=== PATIENT | female | born 1950 | race Caucasian/White ===

== ENCOUNTER 2018-09-07 11:13 | Outpatient (CLI) | payer OTHER ==
[2018-09-07] MEDS ORDERED: NALOXONE HCL 0.4 MG/ML INJ IVP PRN (11:40)
[2018-09-07] MEDS ORDERED: MIDAZOLAM 2 MG/2 ML VIAL IVP PRN (11:40)
[2018-09-07] MEDS ORDERED: fentaNYL 100 MCG/2 ML INJ IVP PRN (11:40)
[2018-09-07] MEDS ORDERED: FLUMAZENIL 0.5 MG/5 ML MDV IVP PRN (11:40)
[2018-09-07] MEDS ORDERED: NS 1,000 ML IV SCH (11:45)
[2018-09-07] MEDS ORDERED: GADOBUTROL 10 ML VIAL IVP ONE (12:40)
[2018-09-07] MEDS ORDERED: FLUMAZENIL 0.5 MG/5 ML MDV IVP ONE (12:43)
[2018-09-07] MEDS ORDERED: NALOXONE HCL 0.4 MG/ML INJ ONE (12:43)
[2018-09-07] MEDS ORDERED: fentaNYL 100 MCG/2 ML INJ ONE (12:44)
[2018-09-07] MEDS ORDERED: MIDAZOLAM 2 MG/2 ML VIAL ONE (12:44)
--- NOTE | 2018-09-07 13:08 | PDGENHP ---
History & Physical Chief Complaint: pre implant MRI Relevant Physical Exam: RRR, clear
--- NOTE | 2018-09-07 13:09 | PDPROPOC ---
Sedation Plan of Care Sedation Plan of Care: vital signs stable, mental status noted, patient educated of risks, benefits, alternatives, patient can tolerate sedation ASA Classification: ASA 1 Planned drugs: fentanyl, midazolam Mallampati Score: Class 1 Mallampati Reference Image: Patient passed 3-3-2 rule?: Yes
[2018-09-07 15:11] VITALS: BP 130/62
== END 2018-09-07 15:14 | disposition home or self-care (01) ==
LOC: FIMAGING 11:13
PROVIDERS: ATTEND Neurological Surgery
DX: Z01.818 Encounter for other preprocedural examination (principal); G25.0 Essential tremor
CPT/HCPCS: 70552; A9585; J2250; J3010; 82565-PO; J2310

== ENCOUNTER 2018-09-08 05:35 | Day surgery (SDC) | payer OTHER ==
--- NOTE | 2018-08-31 13:48 | GHP ---
DATE OF ADMISSION: 09/08/2018 HISTORY OF PRESENT ILLNESS: The patient is a 68-year-old female with essential tremor. She has had tremor for approximately 30 years, and it has progressed over time. The tremor is bilateral, with th e right hand worse than the left. She is right-hand dominant. The tremor is present with kinetic ac tions, however, also present to some degree at rest. 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 She is currently on Keppra. Sh rosa has had no changes in her symptoms. PAST MEDICAL HISTORY: Essential tremor, depression, dyslipidemia, seizure, thyroid disorder, cancer. PAST SURGICAL HISTORY: Spinal fusion, cervical fusion, lumbar fusion. ALLERGIES: No known drug allergies. CURRENT HOME MEDICATIONS: Keppra, baby aspirin, Zoloft, amitriptyline, atorvastatin, Synthroid. The patient denies alcohol and tobacco use. She has 2 children. REVIEW OF SYSTEMS: Negative, except for what was mentioned in the HPI. FAMILY HISTORY: No pertinent neurosurgical family history. PHYSICAL EXAM: GENERAL: The patient was seen and examined, appears to be in no apparent distress. Mood and affect are appropriate. Alert and oriented. NEUROLOGIC: Facial expression is symmetrical. Tongue is midline with protrusion. Hearing is grossly intact. Speech is fluent, without dysarthri a. Muscle strength is well preserved in upper and lower extremities at a 5/5. She has right greater than left hand tremor. ASSESSMENT AND PLAN: In summary, the patient is a 68-year-old female with essential tremor. She has undergone a WENDY scan of the brain that was within normal limits, and also underwent a neuropsycholog ical evaluation by Dr. Mora, who states the patient is a suitable candidate for deep brain stimula tion. We discussed the risks, benefits, and alternatives to surgical intervention for her tremor wit h deep brain stimulation. The patient has agreed to proceed with surgery and has been consented for staged deep brain stimulation. We will proceed with left VIM lead placement first, followed by right VIM lead placement 1 month later, and then bilateral generator placements a month late. Prior to ea ch surgery, she will require an increased dose of Keppra of 1000 mg as a preventative measure due to her history of seizures. /[id number]/MODL
[2018-09-08] MEDS ORDERED: LR 1,000 ML IV ONE (05:49)
[2018-09-08] MEDS ORDERED: levETIRAcetam 1000MG/NACL 100 ML IV ONE (06:00)
[2018-09-08] MEDS ORDERED: CEFUROXIME 1,500 MG in NS 50 ML IV ONE (06:00)
[2018-09-08 06:29] VITALS: BP 120/68
[2018-09-08 06:38] LABS: PLATELET COUNT 240 10^3/uL (150-400)
[2018-09-08] MEDS ORDERED: THROMBIN (BOVINE) 20,000 UNIT VIAL TP ONE (06:45)
[2018-09-08] MEDS ORDERED: CHLORHEXIDINE GLUC HIBICLENS 118 ML BTL TP ONE (06:45)
[2018-09-08] MEDS ORDERED: EPINEPHrine 1 MG/ML INJ ONE (06:46)
[2018-09-08] MEDS ORDERED: BUPIVACAINE 0.25% 30 ML SDV ONE (06:46)
[2018-09-08] MEDS ORDERED: POVIDONE-IODINE 30 GM OINTTUBE TP ONE (06:46)
[2018-09-08] MEDS ORDERED: GENTAMICIN SULFATE 80 MG/2 ML VIAL ONE (06:46)
[2018-09-08 06:51] LABS: INR 0.9 (0.83-1.16); PROTIME(PATIENT) 12.4 SEC (12.0-15.0)
== END 2018-09-08 07:01 | disposition home or self-care (01) ==
LOC: FSGY 05:35
PROVIDERS: ATTEND Neurological Surgery
DX: G25.0 Essential tremor (principal); Z53.9 Procedure and treatment not carried out, unspecified reason; G40.909 Epilepsy, unspecified, not intractable, without status epilepticus; Z98.1 Arthrodesis status; E78.5 Hyperlipidemia, unspecified; F32.9 Major depressive disorder, single episode, unspecified
CPT/HCPCS: 80177-90; J0171; J0697; J1580; J1953

== ENCOUNTER 2018-10-06 05:39 | Inpatient (IN) | payer OTHER ==
--- NOTE | 2018-10-03 13:31 | GHP ---
[f rep st] PREOP HISTORY AND PHYSICAL DATE OF ADMISSION: 10/06/2018 HISTORY OF PRESENT ILLNESS: The patient is a 68-year-old female with essential tremor. She has had a tremor for approximately 30 years, and it has progressed over time. The tremor is bilateral with t he right hand worse than the left. She is right-hand dominant. The tremor is present with kinetic a ctions, however, also present to some degree at rest. She has also been diagnosed with a seizure dis order in the 1970s, and she has generalized seizures without an aura. She is currently on Keppra. S he has had no changes in her symptoms. PAST MEDICAL HISTORY: Essential tremor, depression, dyslipidemia, seizure, thyroid disorder, cancer. PAST SURGICAL HISTORY: Cervical and lumbar spinal fusion. ALLERGIES: No known drug allergies. CURRENT HOME MEDICATIONS: Keppra, baby aspirin, Zoloft, amitriptyline, atorvastatin, Synthroid. SOCIAL HISTORY: Denies alcohol and tobacco use. She has 2 children. REVIEW OF SYSTEMS: Negative except for what is mentioned in the HPI. FAMILY HISTORY: No pertinent neurosurgical family history. PHYSICAL EXAM: The patient was seen and examined. Appears to be in no apparent distress. Mood and affect are appropriate. Alert and oriented. Extraocular movements are intact. Pupils equal and magdalena ctive to light. Facial expression is symmetrical. Tongue is midline with protrusion. Hearing is gr ossly intact. Speech is fluent without any dysarthria. Muscle strength is well preserved in the upp er and lower extremities. She has right greater than left hand tremor. ASSESSMENT AND PLAN: In summary, the patient is a 68-year-old female with essential tremor. She has undergone a Jah scan of the brain that was within normal limits and also underwent a neuropsychologi deyanira evaluation by Dr. Mora, who states the patient is a suitable candidate for deep brain stimulat ion. We discussed the risks, benefits, and alternatives to surgical intervention for her tremor with deep brain stimulation. The patient has agreed to proceed with surgery and has been consented for s taged deep brain stimulation. We will proceed with left VIM lead placement first followed by right V IM lead placement 1 month later and then bilateral generator placements a month after that. Prior to each surgery, she will require an increased dose of Keppra 1000 mg as a preventative measure due to her history of seizures. /[id number]/MODL
--- NOTE | 2018-10-06 06:21 | PDHPUP ---
History & Physical Update H&P update statement: This history and physical update is based on an assessment of the patient which was completed after admission or registration (within 24 hours), but prior to the surgery/procedure. H&P update: H&P reviewed & patient examined, no change in patient's condition since H&P completed
[2018-10-06] MEDS ORDERED: CHLORHEXIDINE GLUC HIBICLENS 118 ML BTL TP ONE (06:43)
[2018-10-06] MEDS ORDERED: EPINEPHrine 1 MG/ML INJ ONE (06:43)
[2018-10-06] MEDS ORDERED: BUPIVACAINE 0.25% 30 ML SDV ONE (06:43)
[2018-10-06] MEDS ORDERED: THROMBIN (BOVINE) 20,000 UNIT VIAL TP ONE (06:43)
[2018-10-06] MEDS ORDERED: GENTAMICIN SULFATE 80 MG/2 ML VIAL ONE (06:44)
[2018-10-06] MEDS ORDERED: POVIDONE-IODINE 30 GM OINTTUBE TP ONE (06:44)
[2018-10-06] MEDS ORDERED: DEXMEDETOMIDINE HCL 400 MCG in NS 100 ML IV ONE (07:00)
[2018-10-06] MEDS: LR 1,000 ML IV ONE ×2 (07:00→07:19)
[2018-10-06] MEDS ORDERED: fentaNYL 100 MCG/2 ML INJ ONE ×2 (07:10→07:41)
--- NOTE | 2018-10-06 07:13 | PDANEPAE ---
ANE Past Medical History - Cardiovascular History Hx Hypertension: No Hx Arrhythmias: No Hx Chest Pain: No Hx Coronary Artery / Peripheral Vascular Disease: Yes Hx CHF / Valvular Disease: No Hx Palpitations: No Cardiovascular History Comment: htn. hyperlipidemia. pvd. 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 "Hand tremors" x 30 years. Recent seizures - last one about 6 wks ago - Endocrine History Hx Diabetes: No Endocrine History Comment: hypothyroidism - Renal History Hx Renal Disorders: No - Liver History Hx Hepatic Disorders: No - Neurological & Psychiatric Hx Hx Neurological and Psychiatric Disorders: No Neurological / Psychiatric History Comment: depression - Cancer History Hx Cancer: Yes Cancer History Comment: Melanoma to L arm that was removed. - Congenital Disorder History Hx Congenital Disorders: No - GI History Hx Gastrointestinal Disorders: Yes Gastrointestinal History Comment: Reflux. Ulcers - Other Health History Other Health History: Missing teeth to bottom jaw; no loose teeth - Chronic Pain History Chronic Pain: No - Surgical History Prior Surgeries: L2-S1 fusion 2010. C4-C-7 fusion 2011. Anterior/Posterior fusion L3-L4 2012. L Shoulder "cleaning up" 2012. Stent to heart 2016. Stent to R cartotid 2016. L wrist fracture w/ surgical 2005. L wrist hardware removal 2009 ANE Review of Systems Review of Systems: - Exercise capacity METS (RN): 4 METS ANE Patient History - Allergies Allergies/Adverse Reactions: No Known Drug Allergies Allergy (Verified 10/06/18 06:07) - Home Medications Home Medications: Amitriptyline HCl 200 mg PO HS 08/31/18 [Last Taken 09/07/18] Atorvastatin Calcium 40 mg PO DAILY 08/31/18 [Last Taken 09/08/18] Keppra 1000 mg 1,000 mg PO BID 08/31/18 [Last Taken 09/08/18] Multivitamin 1 tab PO DAILY 08/31/18 [Last Taken 09/04/18] Protonix 40mg (*) 40 mg PO DAILY 08/31/18 [Last Taken 09/08/18] Synthroid 50 mcg (*) 50 mcg PO DAILY 08/31/18 [Last Taken 09/08/18] Zoloft 100mg (*) 150 mg PO DAILY 08/31/18 [Last Taken 09/08/18 05:30] - NPO status NPO Since - Liquids (Date): 10/05/18 NPO Since - Liquids (Time): 19:30 NPO Since - Solids (Date): 10/05/18 NPO Since - Solids (Time): 19:30 - Smoking Hx Smoking Status: Never smoked - Family Anes Hx Family Hx Anesthesia Complications: none ANE Labs/Vital Signs - Vital Signs Blood Pressure: 91/66 Heart Rate: 86 Respiratory Rate: 16 O2 Sat (%): 99 Height: 170.18 cm Weight: 52.163 kg ANE Physical Exam - Airway Neck exam: FROM Mallampati Score: Class 2 Mouth exam: normal dental/mouth exam - Pulmonary Pulmonary: no respiratory distress - Cardiovascular Cardiovascular: regular rate and rhythym - ASA Status ASA Status: II ANE Anesthesia Plan Anesthesia Plan: MAC Lines/Monitors: arterial line
[2018-10-06] MEDS ORDERED: levETIRAcetam 1,000 MG in NS 100 ML IV ONE (07:15)
[2018-10-06] MEDS ORDERED: CEFUROXIME 1,500 MG in NS 50 ML IV ONE (07:15)
[2018-10-06] MEDS ORDERED: levETIRAcetam 1000MG/NACL 100 ML IV ONE ×2 (07:15)
[2018-10-06] MEDS ORDERED: ACETAMINOPHEN 500 MG TAB PO PRN (10:32)
[2018-10-06] MEDS ORDERED: ONDANSETRON 4 MG/2 ML VIAL IVP PRN ×2 (10:32→10:58)
[2018-10-06] MEDS ORDERED: fentaNYL 100 MCG/2 ML INJ IVP PRN (10:32)
[2018-10-06] MEDS ORDERED: LABETALOL HCL 5 MG/ML 20 ML MDV IVP PRN (10:32)
[2018-10-06] MEDS ORDERED: NALOXONE HCL 0.4 MG/ML INJ IVP PRN (10:32)
[2018-10-06] MEDS ORDERED: ALBUTEROL 3 ML DEYVIAL IH PRN (10:32)
--- NOTE | 2018-10-06 10:52 | POSTANESTH ---
Post Anesthetic Evaluation Cardiovascular Status: Similar to Pre-Op Cond Respiratory Status: Similar to Pre-op Cond. Level of Consciousness/Mental Status: Alert and Oriented Pain Control: Adequate, Prn Tx Ordered Nausea/Vomiting Control: Adequate, Prn Tx Ordered Complications Possibly Related to Anesthesia: None Noted
[2018-10-06] MEDS ORDERED: BISACODYL 10 MG SUPP PR PRN (10:58)
[2018-10-06] MEDS ORDERED: LACTULOSE 20 GM/30 ML UDCUP PO PRN (10:58)
[2018-10-06] MEDS ORDERED: MAGNESIUM HYDROXIDE 30 ML UDCUP PO PRN (10:58)
[2018-10-06] MEDS ORDERED: POLYETHYLENE GLYCOL 3350 17 GM PKT PO PRN (10:58)
[2018-10-06] MEDS ORDERED: ACETAMINOPHEN 325 MG TAB PO PRN (10:58)
[2018-10-06] MEDS ORDERED: NS W/ 20 KCl/L 1,000 ML IV SCH (11:00)
--- NOTE | 2018-10-06 11:05 | POSTOPPROG ---
Post Op Note Date of Operation: 10/06/18 Surgeon: Kajal Maldonado Emergency Services Professional: Loraine Toure PA-C Anesthesiologist: Dr. Bingham Anesthesia: IV Sedation, Local (Specify) Pre-op Diagnosis: Essential tremor Post-op Diagnosis: Essential tremor Procedure: Left VIM DBS lead placement Inf/Abcess present in the surg proc area at time of surgery?: No Depth: Deep Incisional (Fascial) EBL: Minimal Plan Plan: 68 yo female s/p left VIM DBS lead implant for essential tremor - neuro checks - pain control - advance diet as tolerated - maintain SBP < 140 - postop head CT pending - if head CT stable then transfer to floor - dispo: plan for home tomorrow Exam Awake. Alert Following commands Incision with dressing c/d/i
--- NOTE | 2018-10-06 11:21 | GOP ---
[f rep st] OPERATIVE REPORT DATE OF OPERATION: 10/06/2018 SURGEON: Kajal Maldonado DO NEUROSURGEON: Kajal Maldonado DO SYSTEMS INTEGRATION ANALYST: Loraine Toure PA-C. PREOPERATIVE DIAGNOSIS: Essential tremor. POSTOPERATIVE DIAGNOSIS: Essential tremor. PROCEDURE PERFORMED: FINDINGS: SPECIMENS: None. ESTIMATED BLOOD LOSS: 10 mL. INDICATIONS: This is a 68-year-old female with essential tremor, who has been evaluated by a multidi sciplinary team, found to be a good candidate for DBS to the VIM. She was identified and consented. Sites were marked. Brought to the operating room, anesthetized under local with MAC. Hair was clip ped with the OR clippers. Head was cleansed with ChloraPrep. Using Povidone iodine on the pin, I an esthetized the pin sites with 0.25% Marcaine with epinephrine. Placed the Leksell frame in a stereot actic position and performed a Stealth spin with the O-arm 2, this to the preoperative plan a nd the Stealth frame link software. Her ACPC distance was 24.6, her entry point was an X of -42.35, a Y of 31.55, a Z of 66.03. The target was an X of -12.53, a Y of -5.56, a Z is -0.37. These corres ponded to an X of 113, a Y of 88, a Z of 96, a ring of 64 degrees, and an arc of 112.1 degrees. We w ere 24.2 degrees off midsagittal and 60.8 degrees off midaxial for the entry point angles. We preppe d and draped in the usual sterile fashion and triple checked all the frame coordinates by all provide rs in the room. Anesthetized a half-ross incision with 0.25% Marcaine with epinephrine. Made a half -ross incision with a 10 blade, used a periosteal to elevate the periosteum. Used Adriana clips for he mostasis, then marked the bone opening using the Leksell frame coordinates and created a pilot submersible hole. Then, a 14 mm bur hole was drilled. The bone edges were waxed. The stim locking device was placed and verified to clip and lock. We then opened the dura sharply with an 11 blade. She had a fair sonia unt of atrophy. We introduced the cannula and plugged the hole with Gelfoam and DuraSeal. Placed a microelectrode and then performed microelectrode recordings. There is a dictation of the microelectr ode findings by Loraine Toure. She was required as an phys assistant in this case as one person was req uired to be scrubbed to manipulate the drive and electrode as one did the PARAS recording, so we perfor med a PARAS recording. We got good recordings. We were particularly deep. We got low side effects. I elected to make paresthesias at low voltages. I elected to make an anterior move. We did the same and again we got in particularly deep but had a good run of VIM with driving and deepened light touc h. In this instance I performed a Stealth spin just to see if we had some shift and we did have some shift given the patient's atrophy, so this made sense. We did some macro stim. We got good low raul e effect profile and good tremor control, so we elected to place the lead where we got out of the VIM , which was approximately 5.8 mm below target. We measured and placed the lead and tested the lead. We got excellent tremor control with low side effects. With a low side effect profile I elected to leave the lead here, performed x-rays with the bomb sites and a stereotactic spin which was t o the S7 preoperative plan and was 2 mm anterior as we would expect in approximately 4-5 mm deep to t arget which is exactly what we would expect based upon the recordings and the placement. We retracte d the cannulas and placed the locking mechanism, locked the mechanism, removed the stylet, brought th e lead down and out, placed it into the groove, placed the cap, took another x-ray, it had not migrat ed. Placed the boot over the lead, locked it into place with a torque wrench. Tunneled the boot pos teriorly and coiled the wire posterior and around the incision. Copiously irrigated with over a lite r of gentamicin-infused saline. Closed the galea with 2-0 Vicryl pop-offs. The skin was closed with 3-0 running nylon. Dressed with Xeroform and Telfa, stapled down, the frame was removed. Head was placed, wrapped with gauze wrap. Patient tolerated the procedure well. There were no complications. DESCRIPTION OF PROCEDURE: PROCEDURE: 1. Left deep brain stimulator lead placement with an Ramírez lead to the left VIM nucleus of the thal amus. 2. Stealth. FLUIDS: 800 mL crystalloid. URINE OUTPUT: Not recorded. DRAINS: None. COMPLICATIONS: None. /[id number]/MODL
[2018-10-06] MEDS ORDERED: ACETAMINOPHEN 500 MG TAB ONE (11:47)
[2018-10-06] MEDS: HYDROCODONE/APAP 5/325 TAB PO PRN ×3 (13:49→22:05)
[2018-10-06] MEDS: CEFUROXIME 1,500 MG in NS 50 ML IV SCH ×2 (13:58→21:58)
--- NOTE | 2018-10-06 15:22 | GPN ---
[f rep st] PROCEDURE NOTE DATE OF PROCEDURE: 10/06/2018 PREPROCEDURE DIAGNOSIS: Essential tremor. POSTPROCEDURE DIAGNOSIS: Essential tremor. PROCEDURE PERFORMED: Intraoperative functional subcortical mapping by microelectrode recording and s timulation. COMPLICATIONS: None. INDICATIONS FOR PROCEDURE: Determination of optimal electrode lead placement for deep brain stimulat ion therapy for essential tremor to the VIM. DESCRIPTION OF PROCEDURE: Following the incision on the left upper hole was drilled. The arc was th en arranged with the following coordinates X 113, Y 88, Z 96, ring 64, arc 112.1. The recording micr oelectrode was then slowly advanced into the brain using a center tract. There was evidence of cell bursts above target at 13 and 12. There was an uptake in baseline around 8 above target and stronger spikes at 5 above target. There was possibility of change in stimulation with passive range of geovanna on with elbow extension and flexion at 6.6 above target and light touch at 3 below target. We then p roceeded with macro stimulation at 5 above target, and patient had tingling at 4.0 in her right hand with no tremor improvement. We then proceeded with macro stimulation at 2.5 below target and patient had persistent paresthesias in her right arm and leg at 2.0 amplitude. With this macro stimulation and recordings, we elected to proceed with another tract. We then proceeded with an anterior tract a nd advanced the microelectrode. There was evidence of cell bursts above target at 9. There was upta ke in baseline at 0.6 above target. At 1.4 below target there was change in stimulation with passive range of motion of the shoulder. We exited VIM at 5.8 below target. We then elected to proceed wit h macro stimulation at target. She had no side effects up to 4.0 with improved tremor. We then plac ed the lead and proceeded with test stimulation. At 1 negative, 2 positive patient had tingling in h er right hand at 3.0 with improved tremor at 2.0 at 2 negative, 3 positive patient had no side effect s with improved tremor at 2.0. At 3 negative, 4 positive patient had no side effects at 3.0 with imp roved tremor. At 4 negative, 3 positive patient had no side effects up to 3.0 with improved tremor. With this microelectrode recording as well as test stimulation we elected to place the lead in this location with the bottom of the lead at 5.8 below target. The patient tolerated the procedure well a nd was transferred to the floor. /[id number]/MODL
--- NOTE | 2018-10-06 17:27 | PDMN ---
Medical Necessity Medical necessity: Pt meets IP criteria as of 10/06/2018 per and [facility] SG-NS ( Neurostimuator implantation); Medicare IP only procedure
[2018-10-06] MEDS ORDERED: LORazepam 2 MG/ML INJ IVP PRN (18:14)
[2018-10-06] MEDS ORDERED: LORazepam 2 MG/ML INJ IVP ONE (18:15)
[2018-10-06] MEDS: hydrALAZINE 20 MG/ML VIAL IVP PRN (21:03)
[2018-10-06] MEDS: SENNOSIDES/DOCUSATE SODIUM TAB PO SCH (21:03)
[2018-10-06] MEDS: levETIRAcetam 500 MG TAB PO SCH (21:03)
[2018-10-07] MEDS ORDERED: LORazepam 2 MG/ML INJ IVP PRN (02:00)
[2018-10-07] MEDS ORDERED: LORazepam 2 MG/ML INJ IVP ONE (02:15)
[2018-10-07] MEDS: HYDROCODONE/APAP 5/325 TAB PO PRN ×4 (05:56→20:41)
[2018-10-07] MEDS: hydrALAZINE 20 MG/ML VIAL IVP PRN ×3 (08:11→20:48)
[2018-10-07] MEDS: SENNOSIDES/DOCUSATE SODIUM TAB PO SCH ×2 (08:11→20:40)
[2018-10-07] MEDS: levETIRAcetam 500 MG TAB PO SCH ×2 (08:12→20:40)
--- NOTE | 2018-10-07 12:39 | NEUSURGPN ---
Date of Surgery: 10/06/18 Post Op Day: 1 Assessment/Plan: 68 yo female s/p left VIM DBS lead implant for essential tremor. Stable post op CT. Neuro intact but with headaches this am. - q4h neuro checks - pain control -move to all orals and monitor - advance diet as tolerated - maintain SBP < 140 - dispo: plan for home tomorrow dw Dr. Maldonado Subjective: Tremor back to normal today after being increased last night. Complains of severe headaches. Objective: mild distress AAOx4 speech clear and fluent cnii-xii grossly intact EOMI, PEARLA no drift MAEx4, 5/5= tremor SILT INcision dressed. - Physician Discussed Patient with : Erica Neurosurgery Physical Exam - Vitals, I&O, Labs I and O 10/06/18 10/07/18 10/08/18 05:59 05:59 05:59 Intake Total 1130 Output Total 1645 1000 Balance -515 -1000 Weight 52.163 kg Intake: Oral (ml) 30 IV Intake (ml) 750 IV Infused (ml) 350 Cefuroxime 1,500 mg In Ns 50 50 ml @ 200 mls/hr IV Q8HRS [facility]U Rx#:[id number] NS W/ 20 KCl/L 1,000 ml @ 300 70 mls/hr IV CONT LIU Rx #:[id number] Output: Urine (ml) 1640 1000 Catheter 240 Toilet 1400 1000 Estimated Blood Loss (ml) 5 Other: Number of Voids Toilet 1 1 Vital Signs Temp Pulse Resp BP Pulse Ox 36.9 C 91 17 148/70 H 95 10/07/18 12:00 10/07/18 12:00 10/07/18 12:00 10/07/18 12:00 10/07/18 12:00 ICD10 Worksheet Patient Problems: Problems Problem Status Onset Essential tremor Acute - ICD10 Problem Qualifiers (1) Essential tremor
--- NOTE | 2018-10-07 15:06 | ASMTCMCOM ---
CM Note CM Note Notes: Pt is a 68 y/o female with essential tremor. She had a procedure 10/06/2018, an intraoperative functional subcortical mapping by microelectrode recording and stimulation.PT/OT have not been ordered. Pt lives independently and it is anticipated she will d/c without CM needs. CM will follow for changes. D/C Plan: Anticipate independent. Date Signed: 10/07/2018 03:06 PM Electronically Signed By:Mya Malone
[2018-10-07] MEDS ORDERED: AMITRIPTYLINE HCL 100 MG TAB PO SCH (21:00)
[2018-10-08] MEDS: HYDROCODONE/APAP 5/325 TAB PO PRN ×2 (05:41→10:15)
[2018-10-08 05:47] VITALS: BP 137/71
[2018-10-08] MEDS ORDERED: LEVOTHYROXINE 50 MCG TAB PO SCH (06:00)
--- NOTE | 2018-10-08 07:50 | NEUSURGPN ---
Assessment/Plan: 68 yo female s/p left VIM DBS lead implant for essential tremor. Stable post op CT. Neuro intact, headaches improved. . -home later today. dw Dr. Maldonaod Subjective: doing much better, headache only 2 or 3 today. Ready to go home today. Objective: mild distress AAOx4 speech clear and fluent cnii-xii grossly intact EOMI, PEARLA no drift MAEx4, 5/5= tremor SILT INcision dressed. - Physician Discussed Patient with : Erica Neurosurgery Physical Exam - Vitals, I&O, Labs I and O 10/07/18 10/08/18 10/09/18 05:59 05:59 05:59 Intake Total 1130 500 Output Total 1645 1000 Balance -515 -500 Weight 52.163 kg Intake: Oral (ml) 30 500 IV Intake (ml) 750 IV Infused (ml) 350 Cefuroxime 1,500 mg In Ns 50 50 ml @ 200 mls/hr IV Q8HRS [facility] Rx#:[id number] NS W/ 20 KCl/L 1,000 ml @ 300 70 mls/hr IV CONT LIU Rx #:[id number] Output: Urine (ml) 1640 1000 Catheter 240 Toilet 1400 1000 Estimated Blood Loss (ml) 5 Other: Number of Voids Toilet 1 1 Vital Signs Temp Pulse Resp BP Pulse Ox 37.3 C 95 16 137/71 H 91 L 10/08/18 04:00 10/08/18 05:45 10/08/18 04:00 10/08/18 05:45 10/08/18 05:45 ICD10 Worksheet Patient Problems: Problems Problem Status Onset Essential tremor Acute - ICD10 Problem Qualifiers (1) Essential tremor
--- NOTE | 2018-10-08 08:38 | ASMTLACE ---
JANET Length of stay for Answers: 1 day current admission Acuity / Level of Answers: Yes Care: Did the patient have an inpatient admission? Comorbidities - select Answers: Coronary Artery Disease all that apply Peripheral vascular disease Other Notes: HTN; Seizure disorder # of Emergency department Answers: 0 visits in the last 6 months Social determinants Answers: Mental health diagnosis (anxiety, depression, pers onality disorders, etc.) Score: 11 Date Signed: 10/08/2018 08:37 AM Electronically Signed By:Rebecca Mathew RN
--- NOTE | 2018-10-08 08:38 | ASDISCHSUM ---
Discharge Information Plan Status:Home with No Needs Medically Cleared to Leave:10/07/2018 Discharge Date:10/07/2018 CM D/C Disposition: ADT D/C Disposition:Home, Routine, Self-Care Projected Discharge Date:10/07/2018 Transportation at D/C: Discharge Delay Reason: Follow-Up Date:10/07/2018 Discharge Slot: Final Diagnosis: Placement Information Patient Contact Information Contact Name:PARK Relationship: Address:[address] [place] [address] [address] Work Phone: City:[facility] Phone: State/Zip Code:[place] [address] Email: Financial Information Financial Class:Medicare Primary Plan Desc:MEDICARE INPATIENT Primary Plan Number:[id number] Secondary Plan Desc:JETT PPO HMO OPEN ACC LOCAL Secondary Plan Number:[id number] Assessment Information [facility] CM Progress Note CM Note CM Note Notes: Pt is a 68 y/o female with essential tremor. She had a procedure 10/06/2018, an intraoperative functional subcortical mapping by microelectrode recording and stimulation.PT/OT have not been ordered. Pt lives independently and it is anticipated she will d/c without CM needs. CM will follow for changes. D/C Plan: Anticipate independent. Date Signed: 10/07/2018 03:06 PM Electronically Signed By:Mya Malone Intervention Information
[2018-10-08] MEDS ORDERED: PANTOPRAZOLE SODIUM 40 MG TAB PO SCH (09:00)
[2018-10-08] MEDS ORDERED: ATORVASTATIN CALCIUM 40 MG TAB PO SCH (09:00)
[2018-10-08] MEDS ORDERED: MULTIVITAMINS 1 EACH TAB PO SCH (09:00)
[2018-10-08] MEDS ORDERED: TRIAMTERENE/HCTZ 37.5/25 1 EACH TAB PO SCH (09:00)
[2018-10-08] MEDS ORDERED: SERTRALINE HCL 100 MG TAB PO SCH (09:00)
[2018-10-08] MEDS: SENNOSIDES/DOCUSATE SODIUM TAB PO SCH (10:16)
[2018-10-08] MEDS: levETIRAcetam 500 MG TAB PO SCH (10:17)
--- NOTE | 2018-10-11 20:22 | GDS ---
[f rep st] DISCHARGE SUMMARY ADMITTING DIAGNOSES: 1. Parkinson disease. 2. Seizures. DISCHARGE DIAGNOSES: 1. Parkinson disease. 2. Seizure. 3. Left deep brain stimulator lead placement. HOSPITAL COURSE: The patient is a 68-year-old female who presented to the hospital on October 06, to proceed with intervention for Parkinson's. She underwent placement of left DBS le ad to the without any complications or difficulties . She was transferred to [facility] floor for further observation. Once she was tolerating a diet, voiding without difficulty, pain co ntrolled, and headache mild, she was deemed suitable for discharge. She was discharged to home on 2018. DISCHARGE INSTRUCTIONS: Patient can shower on postoperative day 3 and refrain from heavy lifting and strenuous activity. /[id number]/MODL
== END 2018-10-08 11:10 | disposition home or self-care (01) | DRG 27 ==
LOC: FSGY 05:39 → F2N 10:58 → F3N 11:26
PROVIDERS: ADMIT Neurological Surgery; ATTEND Neurological Surgery
PROC: 00H00MZ Insertion of Neurostimulator Lead into Brain, Open Approach (ICD-10-PCS; principal; 2018-10-06 07:15)
DX: G20 Parkinson's disease (principal); G40.909 Epilepsy, unspecified, not intractable, without status epilepticus; E78.5 Hyperlipidemia, unspecified; F32.9 Major depressive disorder, single episode, unspecified; E07.9 Disorder of thyroid, unspecified; Z85.9 Personal history of malignant neoplasm, unspecified; Z98.1 Arthrodesis status
CPT/HCPCS: C1713; C1778; J0171; J0360; J0697; J1580; J1953; J2060; J2270; J2405; J3010

== ENCOUNTER 2018-11-15 06:39 | Day surgery (SDC) | payer OTHER ==
--- NOTE | 2018-11-07 17:03 | GHP ---
[f rep st] PREOP HISTORY AND PHYSICAL DATE OF ADMISSION: 11/15/2018 SURGERY DATE: TuesdayNovember 15. Please see scanned history and physical. DICTATION CANCELLED BY DICTATOR. /[id number]/MODL MTDD
[2018-11-15 06:20] VITALS: BP 146/76
[~2018-11-15 06:39] MED LIST: BUPIVACAINE 0.25% 30 ML SDV ONE; CEFUROXIME 1,500 MG in NS 50 ML IV ONE; CHLORHEXIDINE GLUC HIBICLENS 118 ML BTL TP ONE; EPINEPHrine 1 MG/ML INJ ONE; GENTAMICIN SULFATE 80 MG/2 ML VIAL ONE; LR 1,000 ML IV ONE; POVIDONE-IODINE 30 GM OINTTUBE TP ONE; THROMBIN (BOVINE) 20,000 UNIT VIAL TP ONE
--- NOTE | 2018-11-15 06:47 | PDANEPAE ---
ANE History of Present Illness Craniotomy for deep brain stimulator, stage II ANE Past Medical History - Cardiovascular History Hx Hypertension: No Hx Arrhythmias: No Hx Chest Pain: No Hx Coronary Artery / Peripheral Vascular Disease: Yes Hx CHF / Valvular Disease: No Hx Palpitations: No Cardiovascular History Comment: htn. hyperlipidemia. pvd. 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 "Hand tremors" x 30 years. Recent seizures - last one about 6 wks ago - Endocrine History Hx Diabetes: No Endocrine History Comment: hypothyroidism - Renal History Hx Renal Disorders: No - Liver History Hx Hepatic Disorders: No - Neurological & Psychiatric Hx Hx Neurological and Psychiatric Disorders: No Neurological / Psychiatric History Comment: depression - Cancer History Hx Cancer: Yes Cancer History Comment: Melanoma to L arm that was removed. - Congenital Disorder History Hx Congenital Disorders: No - GI History Hx Gastrointestinal Disorders: Yes Gastrointestinal History Comment: Reflux. Ulcers - Other Health History Other Health History: Missing teeth to bottom jaw; no loose teeth. wears glasses. bilateral hearing aides - Chronic Pain History Chronic Pain: No - Surgical History Prior Surgeries: 10/06/18 DBS lead placement- left hemisphere with Maldonado. L2- S1 fusion 2010. C4-C-7 fusion 2012. Anterior/Posterior fusion L3-L4 2013. L Shoulder "cleaning up" 2012. Stent to heart 2015. Stent to R cartotid 2015. L wrist fracture w/ surgical 2005. L wrist hardware removal 2009 ANE Review of Systems Review of systems is: negative Review of Systems: - Exercise capacity METS (RN): 4 METS ANE Patient History - Allergies Allergies/Adverse Reactions: No Known Drug Allergies Allergy (Verified 11/06/18 10:49) - Home Medications Home medications: home medication list seen and reviewed Home Medications: Amitriptyline HCl [Elavil 100 MG (*)] HS 08/31/18 [Last Taken 11/14/18] Atorvastatin Calcium [Lipitor 40 mg (*)] 08/31/18 [Last Taken 11/14/18] Levothyroxine [Synthroid 50 mcg (*)] DAILY06 08/31/18 [Last Taken 11/14/18] Multivitamins [Multivitamin (*)] 08/31/18 [Last Taken 11/13/18] Pantoprazole Sodium [Protonix 40mg (*)] 08/31/18 [Last Taken 11/14/18] Sertraline HCl [Zoloft 100mg (*)] 08/31/18 [Last Taken 11/14/18] levETIRAcetam [Keppra 500 mg (*)] BID 08/31/18 [Last Taken 11/14/18] Triamterene/Hctz 37.5/25 [Maxzide-25 (*)] 10/06/18 [Last Taken 11/14/18] Acetaminophen [Tylenol 325mg (*)] Q4HRS PRN 11/06/18 [Last Taken 1 Week Ago ~] - NPO status NPO Status: no food or drink >8 hours NPO Since - Liquids (Date): 11/14/18 NPO Since - Liquids (Time): 21:00 NPO Since - Solids (Date): 11/14/18 NPO Since - Solids (Time): 17:30 - Anes Hx Hx Anesthesia Complications (with details): seizures post op - Smoking Hx Smoking Status: Never smoked - Family Anes Hx Family Anes Hx: none Family Hx Anesthesia Complications: none ANE Labs/Vital Signs - Vital Signs Vital Signs: reviewed preoperatively; see RN documention for details Blood Pressure: 146/76 Heart Rate: 82 Respiratory Rate: 16 O2 Sat (%): 95 Height: 170.18 cm Weight: 52.163 kg ANE Physical Exam - Airway Neck exam: decreased ROM Mallampati Score: Class 2 Mouth exam: poor dentition - Pulmonary Pulmonary: no respiratory distress - Cardiovascular Cardiovascular: regular rate and rhythym - ASA Status ASA Status: III ANE Anesthesia Plan Anesthesia Plan: MAC
--- NOTE | 2018-11-15 06:48 | PDHPUP ---
History & Physical Update H&P update statement: This history and physical update is based on an assessment of the patient which was completed after admission or registration (within 24 hours), but prior to the surgery/procedure. H&P update: H&P reviewed & patient examined, no change in patient's condition since H&P completed H&P changes: Lungs CTA bilaterally. Heart RRR
[2018-11-15] MEDS ORDERED: PROPOFOL 200 MG/20 ML VIAL ONE (07:24)
[2018-11-15] MEDS ORDERED: fentaNYL 100 MCG/2 ML INJ ONE (07:25)
[2018-11-15] MEDS ORDERED: niCARdipine/NACL 200 ML IV SCH (07:30)
[2018-11-15] MEDS ORDERED: DEXMEDETOMIDINE HCL 200 MCG in NS 50 ML IV ONE (07:30)
== END 2018-11-15 07:46 | disposition home or self-care (01) ==
LOC: FSGY 06:39
PROVIDERS: ATTEND Neurological Surgery
DX: G25.0 Essential tremor (principal); Z53.20 Procedure and treatment not carried out because of patient's decision for unspecified reasons; I10 Essential (primary) hypertension; E78.5 Hyperlipidemia, unspecified; I25.10 Atherosclerotic heart disease of native coronary artery without angina pectoris; Z95.5 Presence of coronary angioplasty implant and graft; Z98.1 Arthrodesis status
CPT/HCPCS: J0171; J0697; J1580; J2704; J3010

== ENCOUNTER 2018-11-16 05:42 | Inpatient (IN) | payer OTHER ==
[2018-11-16] MEDS ORDERED: CEFUROXIME 1,500 MG in NS 50 ML IV ONE (05:59)
[2018-11-16] MEDS ORDERED: LR 1,000 ML IV ONE (06:01)
--- NOTE | 2018-11-16 07:14 | PDANEPAE ---
ANE Past Medical History - Cardiovascular History Hx Hypertension: No Hx Arrhythmias: No Hx Chest Pain: No Hx Coronary Artery / Peripheral Vascular Disease: Yes Hx CHF / Valvular Disease: No Hx Palpitations: No Cardiovascular History Comment: htn. hyperlipidemia. pvd. 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 "Hand tremors" x 30 years. Recent seizures - last one about 6 wks ago - Endocrine History Hx Diabetes: No Endocrine History Comment: hypothyroidism - Renal History Hx Renal Disorders: No - Liver History Hx Hepatic Disorders: No - Neurological & Psychiatric Hx Hx Neurological and Psychiatric Disorders: No Neurological / Psychiatric History Comment: depression - Cancer History Hx Cancer: Yes Cancer History Comment: Melanoma to L arm that was removed. - Congenital Disorder History Hx Congenital Disorders: No - GI History Hx Gastrointestinal Disorders: Yes Gastrointestinal History Comment: Reflux. Ulcers - Other Health History Other Health History: Missing teeth to bottom jaw; no loose teeth. wears glasses. bilateral hearing aides - Chronic Pain History Chronic Pain: No - Surgical History Prior Surgeries: 10/06/18 DBS lead placement- left hemisphere with Maldonado. L2- S1 fusion 2010. C4-C-7 fusion 2012. Anterior/Posterior fusion L3-L4 2013. L Shoulder "cleaning up" 2012. Stent to heart 2015. Stent to R cartotid 2015. L wrist fracture w/ surgical 2005. L wrist hardware removal 2009 ANE Review of Systems Review of Systems: - Exercise capacity METS (RN): 4 METS ANE Patient History - Allergies Allergies/Adverse Reactions: No Known Drug Allergies Allergy (Verified 11/15/18 15:53) - Home Medications Home Medications: Amitriptyline HCl [Elavil 100 MG (*)] 200 mg PO HS 08/31/18 [Last Taken 21:00] Atorvastatin Calcium [Lipitor 40 mg (*)] 40 mg PO DAILY 08/31/18 [Last Taken 09:00] Levothyroxine [Synthroid 50 mcg (*)] 0.5 mcg PO DAILY06 08/31/18 [Last Taken 09:00] Multivitamins [Multivitamin (*)] 08/31/18 [Last Taken 11/13/18] Pantoprazole Sodium [Protonix 40mg (*)] 40 mg PO DAILY 08/31/18 [Last Taken 09:00] levETIRAcetam [Keppra 500 mg (*)] BID 08/31/18 [Last Taken 11/15/18 21:00] Triamterene/Hctz 37.5/25 [Maxzide-25 (*)] 37.5 mg PO DAILY 10/06/18 [Last Taken 11/15/18 07:00] Acetaminophen [Tylenol 325mg (*)] Q4HRS PRN 11/06/18 [Last Taken 1 Week Ago ~] Paxil 20mg (*) 20 mg PO DAILY 11/16/18 [Last Taken 11/15/18 21:00] - NPO status NPO Since - Liquids (Date): 11/15/18 NPO Since - Liquids (Time): 21:00 NPO Since - Solids (Date): 11/15/18 NPO Since - Solids (Time): 21:00 - Smoking Hx Smoking Status: Never smoked - Family Anes Hx Family Hx Anesthesia Complications: none ANE Labs/Vital Signs - Vital Signs Blood Pressure: 136/70 Heart Rate: 87 Respiratory Rate: 15 O2 Sat (%): 94 Height: 170.18 cm Weight: 52.163 kg ANE Physical Exam - Airway Neck exam: FROM Mallampati Score: Class 2 Mouth exam: normal dental/mouth exam - Pulmonary Pulmonary: no respiratory distress - Cardiovascular Cardiovascular: regular rate and rhythym - ASA Status ASA Status: II ANE Anesthesia Plan Anesthesia Plan: MAC Total IV Anesthesia: Yes
[2018-11-16] MEDS ORDERED: fentaNYL 250 MCG/5 ML INJ ONE (07:21)
[2018-11-16] MEDS ORDERED: DEXMEDETOMIDINE HCL 200 MCG in NS 50 ML IV ONE (07:30)
[2018-11-16] MEDS ORDERED: levETIRAcetam 1000MG/NACL 100 ML IV ONE (08:39)
[2018-11-16] MEDS ORDERED: LACTULOSE 20 GM/30 ML UDCUP PO PRN (08:42)
[2018-11-16] MEDS ORDERED: MAGNESIUM HYDROXIDE 30 ML UDCUP PO PRN (08:42)
[2018-11-16] MEDS ORDERED: ONDANSETRON 4 MG/2 ML VIAL IVP PRN ×3 (08:42→14:05)
[2018-11-16] MEDS ORDERED: POLYETHYLENE GLYCOL 3350 17 GM PKT PO PRN (08:42)
[2018-11-16] MEDS ORDERED: BISACODYL 10 MG SUPP PR PRN (08:42)
[2018-11-16] MEDS ORDERED: NS W/ 20 KCl/L 1,000 ML IV SCH (08:45)
[2018-11-16] MEDS ORDERED: hydrALAZINE 20 MG/ML VIAL IVP PRN (08:45)
[2018-11-16] MEDS ORDERED: NALOXONE HCL 0.4 MG/ML INJ IVP PRN ×2 (10:13→14:05)
[2018-11-16] MEDS ORDERED: LABETALOL HCL 5 MG/ML 20 ML MDV IVP PRN ×2 (10:13→14:05)
[2018-11-16] MEDS ORDERED: ACETAMINOPHEN 500 MG TAB PO PRN ×2 (10:13→14:05)
[2018-11-16] MEDS ORDERED: ALBUTEROL 3 ML DEYVIAL IH PRN ×2 (10:13→14:05)
[2018-11-16] MEDS ORDERED: GENTAMICIN SULFATE 80 MG/2 ML VIAL ONE (11:28)
[2018-11-16] MEDS: fentaNYL 100 MCG/2 ML INJ IVP PRN ×2 (11:28→13:00)
[2018-11-16] MEDS ORDERED: THROMBIN (BOVINE) 5,000 UNIT VIAL TP ONE (11:28)
[2018-11-16] MEDS ORDERED: CHLORHEXIDINE GLUC HIBICLENS 118 ML BTL TP ONE (11:28)
[2018-11-16] MEDS ORDERED: EPINEPHrine 1 MG/ML INJ ONE (11:28)
[2018-11-16] MEDS ORDERED: fentaNYL 100 MCG/2 ML INJ ONE ×2 (11:28→12:58)
[2018-11-16] MEDS ORDERED: BUPIVACAINE 0.25% 30 ML SDV ONE (11:28)
[2018-11-16] MEDS ORDERED: THROMBIN (BOVINE) 20,000 UNIT VIAL TP ONE (11:32)
--- NOTE | 2018-11-16 11:48 | GOP ---
[f rep st] OPERATIVE REPORT DATE OF OPERATION: 11/16/2018 SURGEON: Kajal Maldonado DO NEUROSURGEON: Kajal Maldonado DO MATERIAL CARRIER: NAT Koo PREOPERATIVE DIAGNOSIS: Essential tremor. POSTOPERATIVE DIAGNOSIS: Essential tremor. PROCEDURE PERFORMED: Right deep brain stimulator lead placement with Ramírez lead to the ventral inte rmediate nucleus of the thalamus. FINDINGS: SPECIMENS: None. ESTIMATED BLOOD LOSS: 10 mL. INDICATIONS: This is a 68-year-old female with essential tremor who has had a left-sided lead placed . She returns for her right-sided VIM lead placement for essential tremor. DESCRIPTION OF PROCEDURE: She was identified, consented. Sites were marked. Brought to the operati ng room, anesthetized under local with MAC. Hair was clipped with the OR clippers. Head was cleanse d with ChloraPrep. Pin sites were anesthetized with 0.25% Marcaine with epinephrine, using povidone iodine on the pins. We placed the Stealth frame stereotactically and then performed a spin with the O2 in the localizer box, merging it with the preoperative MRI and preoperative plan. We mirrored the lead on the left side, which based on PARAS recordings was 6 mm below what we expected target would be . We mirrored it and found a safe track and planned down the center and posterior track at this leve l. The frame coordinates were: The target was an X of 11.13, a y of -6.67, a Z of -6.38 to mirror t he other side. The entry point was an X of 41.5, a Y of 25.76, a Z of 66.45. This corresponded to 2 2.6 degrees off midsagittal and 66.1 degrees off midaxial. This corresponded to Leksell frame coordi nates of X of 87, a Y of 91, a Z of 99.5, a ring of 60 degrees, and an arc of 70.6 degrees. She was prepped and draped in the usual sterile fashion. These were all set and triple-checked by all provid ers in the room. Incision site was marked using Leksell frame coordinates. Half-ross incision was a nesthetized with 0.25% Marcaine with epinephrine. A half-ross incision was made with a 10 blade. He mostasis was obtained with bipolar and Adriana clips. We elevated the periosteum with a periosteal marily vator. We then marked the bone incision, performed a pilot plant technician hole, and then performed a 14 mm bur hole , waxed the bone edges, placed the Guardian Stimloc and locked it into place with the screws, bj mota that the clipping mechanism clipped and locked, opened the dura with an 11 blade, and inserted the center and posterior tract cannulas, plugging the hole with Gelfoam and DuraSeal. Placed the microel ectrodes, performed microelectrode recording at this point. An dyer assistant was required as we had to p erform microelectrode testing with 1 person scrubbed and 1 person unscrubbed. Please refer to the WI R dictation by Laine Toure PA-C, for the microelectrode recording details. We had better recordin gs in the posterior tract; however, too many side effects, and so we set our tract. We had excellent tremor control, low to no side effects. Elected to leave the lead here to approximately 3 above tar get. Again, the target was -6, so little bit up to mirror the other side, so a 6 mm deeper than what would have been expected, so 3 above target would have been approximately 3 below what would traditi onally be the IM target. Based on her microelectrode recordings, this is where we elected to place t he bottom of the bottom contact. We drove to this position, removed the microelectrodes, placed a ca nnula in the posterior tract, measured the lead, placed the lead, and then tested intraoperatively. We got excellent tremor control at low voltages with low to no side effects and multiple contacts. E lected to leave the lead here. Took an x-ray with the bottom site. We then retracted the cannula, p erformed a stereotactic spin, and merged it with the preoperative plan, and we were exactly where we expected to be. We retracted the cannulas, irrigated, and then placed the Guardian and locked it int o place, verifying it had locked. We then removed the stylet, placed the lead into the groove, repla aj the cap, and took an x-ray. It had not migrated. Placed the boot over the lead, locked it into place with the torque wrench, protecting the contact, tunneled it posteriorly with a bayonet, and the n coiled the lead posterior and around the incision. Took another x-ray. It had not migrated. Copi ously irrigated with over a liter of gentamicin-infused saline. Closed the galea with 2-0 Vicryl pop -offs. Skin was closed with 3-0 running nylon. Wound was dressed with Xeroform and Telfa. Campbell head of mathematics was removed and head was wrapped. Patient tolerated procedure well. No complications. FLUIDS: 150 mL of crystalloid. URINE OUTPUT: Not recorded. DRAINS: None. COMPLICATIONS: None. /[id number]/MODL
--- NOTE | 2018-11-16 12:17 | POSTOPPROG ---
Post Op Note Date of Operation: 11/16/18 Surgeon: Kajal Maldonado Bicycle Repairer: Annalise Toure PA-C Anesthesiologist: Dr. Bingham Anesthesia: IV Sedation, Local (Specify) Pre-op Diagnosis: Essential tremor Post-op Diagnosis: Essential tremor Procedure: Right VIM DBS lead placement Inf/Abcess present in the surg proc area at time of surgery?: No Depth: Deep Incisional (Fascial) EBL: Minimal Plan Plan: 68 yo female s/p right VIM DBS lead placement for essential tremor - neuro checks - pain control - maintain SBP < 140 - postop head CT pending - PT/OT - dispo: home tomorrow Exam Awake. Alert. PERRL. EOMI Following commands Muscle strength full at 5/5 Incision with dressing
--- NOTE | 2018-11-16 12:20 | PDMN ---
Medical Necessity Medical necessity: [facility] IP only surgery; cpt 76928 Deep Brain Stimulator Lead Placement
--- NOTE | 2018-11-16 13:20 | GPN ---
[f rep st] PROCEDURE NOTE DATE OF PROCEDURE: 11/16/2018 PREPROCEDURE DIAGNOSIS: Essential tremor. POSTPROCEDURE DIAGNOSIS: Essential tremor. PROCEDURE PERFORMED: Intraoperative functional subcortical mapping by microelectrode recording and s timulation. COMPLICATIONS: None. INDICATIONS FOR PROCEDURE: Determination of optimal electrode lead placement for deep brain stimulat ion therapy for essential tremor to the VIM. DESCRIPTION OF PROCEDURE: Following the incision on the right, a luann hole was drilled. The arc was then arranged with the following coordinates: X 87, Y 91, and Z 99.5, ring 60, arc 70.6. We electe d to proceed with microelectrode recording with a center and posterior tract. There was evidence of cell bursts 15 above target at multiple locations in both the center and posterior tract. There was change in recordings with elbow flexion and shoulder movement at 13.6 above target for the posterior tract. We exited VIM at 3 above target. In the center tract, there was evidence of change in record ing with elbow extension of 11.9 above target and we exited VIM at 3 above target. We then proceeded with macro stimulation utilizing the posterior tract at 6 above target. Patient had transient tingl ing in her left hand starting at 0.5 and more persistent at 1.5. At 9 above target, patient had no s alma effects up to 3.5 with macro stimulation, but patient did not have as much improvement in tremor. Using the center tract, we macro stimulated at 6 above target and patient had transient tingling in her left hand up to 3.5 with some improvement in tremor. At 9 above target with macro stimulation, patient had improved tremor with no side effects up to 1.5. With this microelectrode recording, we e lected to proceed with test stimulation utilizing the center tract with the bottom of the lead at 3 a franchesca target. At 1-, 2+, patient had no side effects up to 3.0 with slight improvement in tremor. At 2-, 3+, patient had improved tremor at 1.5 with no side effects up to 3.0. At 3-, 4+, patient had n o side effects up to 3.0 with improved tremor at 1.5. At 4-, 3+, patient had no side effects up to 3 .0. With this microelectrode recording, as well as test stimulation, we elected to place the lead at this location with the bottom of the lead at 3 above target. The patient tolerated the surgery well and was transferred to the floor. /[id number]/MODL
[2018-11-16] MEDS: SENNOSIDES/DOCUSATE SODIUM TAB PO SCH ×2 (13:49→20:55)
[2018-11-16] MEDS: HYDROCODONE/APAP 5/325 TAB PO PRN ×2 (13:52→19:39)
[2018-11-16] MEDS ORDERED: fentaNYL 100 MCG/2 ML INJ IVP PRN (14:05)
[2018-11-16] MEDS ORDERED: levETIRAcetam 500 MG TAB PO SCH (14:30)
[2018-11-16] MEDS: CEFUROXIME 1,500 MG in NS 50 ML IV SCH (16:35)
[2018-11-16] MEDS: levETIRAcetam 500 MG TAB PO SCH (20:55)
[2018-11-17] MEDS: CEFUROXIME 1,500 MG in NS 50 ML IV SCH (00:03)
[2018-11-17] MEDS: HYDROCODONE/APAP 5/325 TAB PO PRN ×5 (00:13→18:04)
[2018-11-17] MEDS: LEVOTHYROXINE 50 MCG TAB PO SCH (06:07)
--- NOTE | 2018-11-17 07:24 | NEUSURGPN ---
Date of Surgery: 11/16/18 Post Op Day: 1 Assessment/Plan: 68 yo female s/p right VIM DBS lead placement for essential tremor - neuro stable - pain control - PT/OT - patient fell a few days ago and sprained her right ankle. 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 Maldonado Subjective: Has headache this morning. No nausea/vomiting. Objective: Awake. Alert. PERRL. EOMI Facial expression symmetrical Strength full - Physician Discussed Patient with : Erica Neurosurgery Physical Exam - Vitals, I&O, Labs I and O 11/16/18 11/17/18 11/18/18 05:59 05:59 05:59 Intake Total 1105 Output Total 200 Balance 905 Weight 52.163 kg 52.163 kg Intake: Oral (ml) 500 IV Intake (ml) 550 IV Infused (ml) 55 Cefuroxime 1,500 mg In Ns 55 50 ml @ 200 mls/hr IV Q8H [facility] Rx#:[id number] Output: Urine (ml) 200 Bedside Commode 200 Vital Signs Temp Pulse Resp BP Pulse Ox 37.2 C 91 16 137/64 H 96 11/17/18 00:51 11/17/18 00:51 11/17/18 00:51 11/17/18 00:51 11/17/18 00:51 ICD10 Worksheet Patient Problems: Problems Problem Status Onset Essential tremor Acute
[2018-11-17] MEDS: PARoxetine HCL 20 MG TAB PO SCH (09:01)
[2018-11-17] MEDS: levETIRAcetam 500 MG TAB PO SCH ×2 (09:04→20:50)
[2018-11-17] MEDS: PANTOPRAZOLE SODIUM 40 MG TAB PO SCH (09:04)
[2018-11-17] MEDS: SENNOSIDES/DOCUSATE SODIUM TAB PO SCH ×2 (09:04→20:50)
[2018-11-17] MEDS: TRIAMTERENE/HCTZ 37.5/25 1 EACH TAB PO SCH (09:05)
[2018-11-17] MEDS: ATORVASTATIN CALCIUM 40 MG TAB PO SCH (09:05)
--- NOTE | 2018-11-17 15:59 | ASMTCMCOM ---
CM Note CM Note Notes: Pt is s/p VIM deep brain stimulation for essential tremor. She lives in [place] and will return there after d/c. If she discharges today, she and her will stay overnight in a local hotel before leaving for [place] tomorrow. CM will follow for d/c needs. D/C plan: anticipate home independent Date Signed: 11/17/2018 03:59 PM Electronically Signed By:GRISELDA Rocha
[2018-11-17] MEDS: AMITRIPTYLINE HCL 100 MG TAB PO SCH (20:50)
[2018-11-18] MEDS: HYDROCODONE/APAP 5/325 TAB PO PRN (05:27)
[2018-11-18] MEDS: LEVOTHYROXINE 50 MCG TAB PO SCH (05:28)
[2018-11-18] MEDS: ATORVASTATIN CALCIUM 40 MG TAB PO SCH (08:15)
[2018-11-18] MEDS: PANTOPRAZOLE SODIUM 40 MG TAB PO SCH (08:15)
[2018-11-18] MEDS: SENNOSIDES/DOCUSATE SODIUM TAB PO SCH ×2 (08:16→20:31)
[2018-11-18] MEDS: TRIAMTERENE/HCTZ 37.5/25 1 EACH TAB PO SCH (08:16)
[2018-11-18] MEDS: levETIRAcetam 500 MG TAB PO SCH ×2 (08:16→20:31)
[2018-11-18] MEDS ORDERED: IBUPROFEN 200 MG TAB PO PRN (09:46)
--- NOTE | 2018-11-18 09:52 | NEUSURGPN ---
Assessment/Plan: Assessment/Plan: 68 yo female s/p right VIM DBS lead placement for essential tremor - Complaining of headache this morning that was not treated well with norco, will try fiorcet and if this doesn't work, can try ibuprofen - pain control - PT/OT - dispo- hopefully home later today if progresses well this morning this morning with different headache medicines Discussed with Dr. Maldonado Subjective: Has headache this morning. No nausea/vomiting. Tried [place] but this did not help so just got a dose of IV morphine and is somnolent from this. Objective: Somnolent but arousable- just got IV morphine PERRL. EOMI CN II-XII grossly intact Facial expression symmetrical Strength full in BUE/BLE Sensation intact to lt touch - Physician Discussed Patient with : Erica Neurosurgery Physical Exam - Vitals, I&O, Labs I and O 11/17/18 11/18/18 11/19/18 05:59 05:59 05:59 Intake Total 1105 800 Output Total 200 800 Balance 905 0 Weight 52.163 kg Intake: Oral (ml) 500 800 IV Intake (ml) 550 IV Infused (ml) 55 Cefuroxime 1,500 mg In Ns 55 50 ml @ 200 mls/hr IV Q8H [facility] Rx#:[id number] Output: Urine (ml) 200 800 Bedside Commode 200 800 Other: Intake Quantity Yes Sufficient Number of Voids Toilet 2 1 Vital Signs Temp Pulse Resp BP Pulse Ox 36.9 C 87 18 115/60 95 11/18/18 07:44 11/18/18 07:44 11/18/18 07:44 11/18/18 07:44 11/18/18 07:44 ICD10 Worksheet Patient Problems: Problems Problem Status Onset Essential tremor Acute
--- NOTE | 2018-11-18 10:15 | ASDISCHSUM ---
Discharge Information Plan Status:Home with Home Health Medically Cleared to Leave: Discharge Date:11/20/2018 03:15 PM CM D/C Disposition:Home, Routine, Self-Care ADT D/C Disposition:Home, Routine, Self-Care Projected Discharge Date:11/20/2018 11:00 AM Transportation at D/C:Family Discharge Delay Reason: Follow-Up Date:11/20/2018 11:00 AM Discharge Slot: Final Diagnosis: Placement Information Referral Type:*Home Health Care Services Referral ID:[id number] Provider Name:[facility] Address 1:[address] Phone Number: Address 2:[address] Fax Number: City:[place] Selection Factors: State:[place] Patient Contact Information Contact Name:PARK Relationship: Address:[address] Work Phone: City:[place] Alternate Phone: State/Zip Code:[place] [address] Email: Financial Information Financial Class:Medicare Primary Plan Desc:MEDICARE INPATIENT Primary Plan Number:[id number] Secondary Plan Desc:[facility] Secondary Plan Number:[id number] Assessment Information LACE LACE Length of stay for Answers: 2 days current admission Acuity / Level of Answers: Yes Care: Did the patient have an inpatient admission? Comorbidities - select Answers: Coronary Artery Disease all that apply Peripheral vascular disease Other Notes: HTN; HLD # of Emergency department Answers: 0 visits in the last 6 months Score: 9 Date Signed: 11/18/2018 10:14 AM Electronically Signed By:Mya Malone [facility] CM Progress Note CM Note CM Note Notes: Pt is s/p VIM deep brain stimulation for essential tremor. She lives in [place] and will return there after d/c. If she discharges today, she and her will stay overnight in a local hotel before leaving for [place] tomorrow. CM will follow for d/c needs. D/C plan: anticipate home independent Date Signed: 11/17/2018 03:59 PM Electronically Signed By:GRISELDA Rocha [facility] CM Progress Note CM Note CM Note Notes: Therapy informed CM they will be recommending In[facility] rehab for patient. CM to follow. D/C Plan: InPt rehab vs. SNF Date Signed: 11/19/2018 05:34 PM Electronically Signed By:Iman Benjamin [facility] CM Progress Note CM Note CM Note Notes: Pt medically stable for d/c with [facility] PT/OT. Suha at [facility] [phone] checks they service pt address and reports referral/orders are best faxed to [phone]. Pt address/phone verified and pt will return to [place] today. Date Signed: 11/20/2018 03:35 PM Electronically Signed By:GRISELDA Tinoco Intervention Information Intervention Type:*IM-Signed Date of Service:11/17/2018 03:43 PM Patient Type:Inpatient Staff Member:Dacia Sevilla Hours: Discipline: Severity: Comment:
[2018-11-18] MEDS: ACET/CAFFEINE/BUTA FIORICET 1 EACH TAB PO PRN ×2 (13:28→20:32)
[2018-11-18] MEDS: PARoxetine HCL 20 MG TAB PO SCH (13:52)
[2018-11-18] MEDS: AMITRIPTYLINE HCL 100 MG TAB PO SCH (20:32)
[2018-11-19] MEDS: LEVOTHYROXINE 50 MCG TAB PO SCH (04:52)
[2018-11-19] MEDS ORDERED: NS W/ 20 KCl/L 1,000 ML IV SCH (07:45)
--- NOTE | 2018-11-19 08:40 | PDHOSCONS ---
History and Physical - Chief Complaint syncope - History of Present Illness 68 yo female with h/o hypertension, CAD, and essential tremor admitted to neurosurgery service for elective implantation of deep brain stimulator. She is post-op day 3 and course thus far has been remarkable for noted sensitivity to opioid pain medications. She was apparently quite somnolent yesterday after receiving IV Morphine. Last night, she had a fall, but no injuries were reported. This morning when she anirudh from bed, she had a syncopal event with staff in attendance. She did not hit her head. STAT head CT was done this am and is without acute intracranial injury. She denies preceding symptoms such as dizziness, lightheadedness, CP, SOB or vision changes. She c/o headache. She does not recall the syncopal event. Orthostatics were performed by RN after this event (STAT team was called) and she did drop her SBP from 130's to 90's. She otherwise has no complaints. Medicine consult is requested given her syncopal event. History Information - Allergies/Home Medication List Allergies/Adverse Reactions: No Known Drug Allergies Allergy (Verified 11/15/18 15:53) Home Medications: Amitriptyline HCl [Elavil 100 MG (*)] 200 mg PO HS 08/31/18 [Last Taken 11/15/18 ] Atorvastatin Calcium [Lipitor 40 mg (*)] 40 mg PO DAILY 08/31/18 [Last Taken ] Levothyroxine [Synthroid 50 mcg (*)] 50 mcg PO DAILY06 08/31/18 [Last Taken ] Multivitamins [Multivitamin (*)] 1 each PO DAILY 08/31/18 [Last Taken 11/13/18] Pantoprazole Sodium [Protonix 40mg (*)] 40 mg PO DAILY 08/31/18 [Last Taken ] levETIRAcetam [Keppra 500 mg (*)] 1,000 mg PO BID 08/31/18 [Last Taken 11/15/18 21:00] Triamterene/Hctz 37.5/25 [Maxzide-25 (*)] 37.5 mg PO DAILY 10/06/18 [Last Taken 11/15/18] Acetaminophen [Tylenol 325mg (*)] 325 mg PO Q4HRS PRN 11/06/18 [Last Taken 1 Week Ago ~11/08/18] PARoxetine HCL [Paxil 20mg (*)] 20 mg PO DAILY 11/16/18 [Last Taken 11/15/18] Tears/Dextran 70/Hypromellose [Natural Balance Tears (*)] 1 drop EACHEYE Q2 PRN 11/16/18 [Last Taken Unknown] I have personally reviewed and updated: family history, medical history, social history, surgical history - Past Medical History coronary artery disease, hypertension, hyperlipidemia Additional medical history: essential tremor, s/p deep brain stimulator. CAD h/ o stent. carotid stent - Surgical History Reports: coronary stent Additional surgical history: carotid stent. deep brain stimulator for essential tremor. C4-7 fusion. L2-S1 fusion - Family History Positive for: CAD - Social History Smoking Status: Never smoked Alcohol Use: None Drug Use: None Additional social history: Lives independently, Review of Systems Review of Systems: ROS: 10pt was reviewed & negative except for what was stated in HPI & below Physical Exam Physical Exam: Temp Pulse Resp BP Pulse Ox 36.9 C 90 16 92/60 L 100 11/19/18 08:01 11/19/18 08:10 11/19/18 08:10 11/19/18 08:10 11/19/18 08:10 O2 (L/minute) 2 Constitutional: no apparent distress Eyes: PERRL Ears, Nose, Mouth, Throat: dry mucous membranes Cardiovascular: regular rate and rhythym Respiratory: no respiratory distress, clear to auscultation Gastrointestinal: normoactive bowel sounds, soft, non-tender abdomen Skin: warm Musculoskeletal: full muscle strength Neurologic: AAOx3 Psychiatric: interacting appropriately Lab Data & Imaging Review 11/19/18 08:20 11/19/18 08:20 POC Glucose 106 mg/dL (70-100) H 11/19/18 07:16 Visualized and Interpreted EKG results: Yes EKG Interpretation: Positive for: normal sinsus rhythm Assessment & Plan Assessment: Syncope - orthostatic positive, post-op day 3. Likely needs volume. -CBC, BMP pending -will bolus NS 250 cc's and resume maintenance IVF's at 100/hr -recheck orthostatics in am -hold anti-hypertensive today -avoid opiates Essential tremor - s/p deep brain stimulator POD #3 -post-op care per neurosurgery Hypertension - hold triamterene/hctz for now CAD s/p prior stent - CP free, ekg this am non-ischemic. She was advised to stop her ASA and Plavix by her [employer] Manager. -cont statin Hypothyroidism - cont synthroid Full code Dispo - cont inpt. Medicine will continue to follow during this hospitalization
[2018-11-19] MEDS ORDERED: NS 250 ML IV ONE (08:41)
[2018-11-19] MEDS: IBUPROFEN 200 MG TAB PO PRN (11:07)
[2018-11-19] MEDS: ATORVASTATIN CALCIUM 40 MG TAB PO SCH (11:07)
[2018-11-19] MEDS: levETIRAcetam 500 MG TAB PO SCH ×2 (11:07→19:51)
[2018-11-19] MEDS: SENNOSIDES/DOCUSATE SODIUM TAB PO SCH ×2 (11:07→19:51)
[2018-11-19] MEDS: ACETAMINOPHEN 325 MG TAB PO PRN (11:07)
[2018-11-19] MEDS: NS W/ 20 KCl/L 1,000 ML IV SCH (11:14)
--- NOTE | 2018-11-19 11:22 | ECHO ---
[email or web address] [address] Main: [phone] Echocardiography Examination Transthoracic Name: MARIBELL SANABRIA MR#: [id number] Study Date: 11/19/2018 Study Time: 10:27 AM Date of : 1950 Age: 68 year(s) Height: 170.2 cm (67 in.) Weight: 51.71 kg (114 lb.) BSA: 1.59 m2 Gender: Female Examination: Echo Contrast: Image Quality: Adequate Rhythm: Normal sinus rhythm Heart Rate: 95 bpm BP: 92 mmHg/60 mmHg Indication: Cardiac: syncope, h/o stents Procedure Staff Referring Physician: Show Horse Driver: Lenore Landrum RD Reading Physician: Juliano Dias MD Requesting Provider: Indication: Cardiac: syncope, h/o stents Measurements Chambers AV/MV Label Value Normal Value Label Value Normal Value IVSd, 2D 0.7 cm (0.6cm - 1.1cm) AV PGmax 5 mmHg LVDd, 2D 3.7 cm (3.9cm - 5.3cm) AV Vmax 1.1 m/s LVDs, 2D 2.5 cm (2.1cm - 4cm) YONATAN (continuity eq. 2.5 cm2 LVEF, 2D 63 % (54% - 74%) Vmax) LVEF, BP 65 % (55% - 70%) MV A Vmax 0.78 m/s LVOT PGmax 4 mmHg MV DT 151 ms LVOT Vmax 1.06 m/s (0.7m/s - 1.1m/s) MV E' lateral 0.08 m/s LVOTd 1.8 cm (1.8cm - 2cm) MV E' mean 0.06 m/s LVPWd, 2D 0.9 cm MV E' septal 0.05 m/s RVDd, 2D 3.3 cm (1.9cm - 3.8cm) MV E Vmax 0.52 m/s TAPSE 2.4 cm MV E/A 0.67 LA Volume, BP 20 ml (22ml - 52ml) MV E/E' lateral 6.2 LADs, 2D 2.4 cm (2.7cm - 3.8cm) MV E/E' mean 8 LAESV index, BP 12.6 ml/m2 MV E/E' septal 11.4 (0.45 - 1.25) RA Area 13.2 cm2 TV/PV Additional Vessels Label Value Normal Value Label Value Normal Value PV PGmax 3 mmHg AoAsc 3 cm PV Vmax, Caliper 0.9 m/s (0.6m/s - 0.9m/s) AoRoot, 2D 3.1 cm (1.4cm - 2.6cm) Patient: MARIBELL SANABRIA Study Date: 11/19/2018 Page 1 of 3 10:27 AM Conclusions Left Ventricle: Left ventricle is normal in size. The ejection fraction, measured by Simpsons method, is 65 %. Grade I Diastolic Dysfunction. Right Ventricle: Right ventricular systolic function is normal. Left Atrium: The left atrium is normal in size. Right Atrium: The right atrium is normal in size. Aortic Valve: There is no aortic stenosis. Tricuspid Valve: Pulmonary artery pressure cannot be assessed due to inadequate TR signal. Aorta: The aortic root exhibits normal size. IVC: The inferior vena cava is normal in size and course. Findings Left Ventricle: Left ventricle is normal in size. Normal global systolic left ventricular function. The ejection fraction, measured by Simpsons method, is 65 %. Left ventricle wall thickness is normal. There are no regional wall motion abnormalities. Grade I Diastolic Dysfunction. Right Ventricle: Normal size right ventricle. Right ventricular systolic function is normal. Left Atrium: The left atrium is normal in size. Right Atrium: The right atrium is normal in size. Mitral Valve: Mitral valve appears structurally normal. No significant mitral regurgitation. No mitral valve stenosis. Aortic Valve: The aortic valve is structurally normal and trileaflet. No aortic valve regurgitation. There is no aortic stenosis. Tricuspid Valve: Tricuspid valve leaflets are structurally normal. Trivial tricuspid regurgitation. Pulmonary artery pressure cannot be assessed due to inadequate TR signal. Pulmonic Valve: Pulmonic leaflets are structurally normal. Trivial pulmonic valve regurgitation is present. Aorta: The aortic root size in 2D measures 3.1 cm. The aortic root exhibits normal size. The ascending aorta measures 3.0 cm. Ascending aorta is normal in size. Aorta Measurements AoRoot, 2D is 3.1 cm. Patient: MARIBELL SANABRIA Study Date: 11/19/2018 Page 2 of 3 10:27 AM IVC: The inferior vena cava is normal in size and course. Pericardium: No pericardial effusion. Exam Details Procedure Ordered: Echo Procedure Status: Routine study Image Quality: Adequate Facility Location: Cardiac Echo 1 (No Signature Object) Patient: MARIBELL SANABRIA Study Date: 11/19/2018 Page 3 of 3 10:27 AM [id number]
--- NOTE | 2018-11-19 11:48 | CPEKG ---
Test Reason : OPEN Blood Pressure : / mmHG Vent. Rate : 088 BPM Atrial Rate : 088 BPM P-R Int : 181 ms QRS Dur : 099 ms QT Int : 361 ms P-R-T Axes : 030 052 044 degrees QTc Int : 437 ms Sinus rhythm Confirmed by Jong Miller ([id number]) on 11/19/2018 11:47:58 AM Referred By: Kajal Maldonado Confirmed By:Jong Miller
--- NOTE | 2018-11-19 12:09 | NEUSURGPN ---
Assessment/Plan: Assessment/Plan: 68 yo female s/p right VIM DBS lead placement for essential tremor 24 hour events: I was called last night around 1130pm when RN found patient down in room. She had gotten up to go to the bathroom without help. Some confusion was noted after this event and a stat head CT was performed that did not show any acute intracranial process and expected postoperative findings. This morning, she was gettign up with assistance to go to the bathroom and became pale and had a syncopal event.STAT team was called. Patient was helped back to bed and found to be at baseline. -RN notified NS of this event. Medicine consulted -Orthostatic BP done and was 130/90 when laying in bed and dropped to 90/60 when standing. Bolus given and Fluids started -Hold all narcotic pain medicines. Please give Tylenol and/or ibuprofen for headache -Medicine consulted and getting echocardiogram as well- appreciate their assistance - PT/OT- recommending short stay in SNF prior to home. - dispo- hopefully tomorrow if SNF placement found and orthostatic BP better Discussed with Dr. Nichols. CT reviewed with him as well. Subjective: Currently has mild headache but denies any dizziness, chest pain, sob, nausea. Does not remember syncopal event this morning. Objective: Alert, awake to person, place, month, situation Speech fluent PERRL. EOMI CN II-XII grossly intact Facial expression symmetrical Strength full in BUE/BLE Sensation intact to lt touch Dressing in place. - Physician Discussed Patient with Dr.: Nichols Neurosurgery Physical Exam - Vitals, I&O, Labs I and O 11/18/18 11/19/18 11/20/18 05:59 05:59 05:59 Intake Total 800 2150 300 Output Total 800 500 300 Balance 0 1650 0 Intake: Oral (ml) 800 2150 300 Output: Urine (ml) 800 500 300 Bedside Commode 800 300 Toilet 500 Other: Intake Quantity Yes Yes Sufficient Number of Voids Bedside Commode 1 Toilet 2 1 1 Vital Signs Temp Pulse Resp BP Pulse Ox 36.9 C 88 18 108/67 96 11/19/18 11:32 11/19/18 11:32 11/19/18 11:32 11/19/18 11:32 11/19/18 11:32 Laboratory Results 11/19/18 08:20 11/19/18 08:20 ICD10 Worksheet Patient Problems: Problems Problem Status Onset Essential tremor Acute
[2018-11-19] MEDS: PARoxetine HCL 20 MG TAB PO SCH (13:03)
[2018-11-19] MEDS: PANTOPRAZOLE SODIUM 40 MG TAB PO SCH (13:03)
--- NOTE | 2018-11-19 17:35 | ASMTCMCOM ---
CM Note CM Note Notes: Therapy informed CM they will be recommending InPt rehab for patient. CM to follow. D/C Plan: InPt rehab vs. SNF Date Signed: 11/19/2018 05:34 PM Electronically Signed By:Iman Benjamin
[2018-11-19] MEDS: AMITRIPTYLINE HCL 100 MG TAB PO SCH (19:51)
[2018-11-20] MEDS: LEVOTHYROXINE 50 MCG TAB PO SCH (04:14)
--- NOTE | 2018-11-20 08:48 | NEUSURGPN ---
Assessment/Plan: 68 yo female s/p right VIM DBS lead placement for essential tremor -RN notified NS of this event. Medicine consulted -Hold all narcotic pain medicines. Please give Tylenol and/or ibuprofen for headache -Medicine consulted and getting echocardiogram as well- appreciate their assistance - PT/OT- recommending short stay in SNF prior to home. Patient would like to see if she continues to improve if she would qualify for home with [facility]. - dispo- hopefully tomorrow if SNF placement found and orthostatic BP better Discussed with Dr. Maldonado. Subjective: Denies any light headiness. Objective: Alert and A&Ox3 Speech fluent PERRL. EOMI CN II-XII grossly intact Facial expression symmetrical Strength full in BUE/BLE Sensation intact to lt touch - Physician Discussed Patient with : Erica Neurosurgery Physical Exam - Vitals, I&O, Labs I and O 11/19/18 11/20/18 11/21/18 05:59 05:59 05:59 Intake Total 2150 2938 Output Total 500 650 Balance 1650 2288 Intake: Oral (ml) 2150 1300 IV Infused (ml) 1638 NS W/ 20 KCl/L 1,000 ml @ 1638 100 mls/hr IV CONT LIU Rx#:[id number] Output: Urine (ml) 500 650 Bedside Commode 300 Toilet 500 350 Other: Intake Quantity Yes Sufficient Number of Voids Bedside Commode 1 Toilet 1 1 Number of Stools Bedside Commode 1 Toilet 1 Vital Signs Temp Pulse Resp BP Pulse Ox 36.6 C 86 12 164/75 H 96 11/20/18 07:25 11/20/18 07:25 11/20/18 07:25 11/20/18 07:25 11/20/18 07:25 Laboratory Results 11/19/18 08:20 11/19/18 08:20 ICD10 Worksheet Patient Problems: Problems Problem Status Onset Essential tremor Acute
[2018-11-20] MEDS: levETIRAcetam 500 MG TAB PO SCH (08:49)
[2018-11-20] MEDS: SENNOSIDES/DOCUSATE SODIUM TAB PO SCH (08:49)
[2018-11-20] MEDS: ACETAMINOPHEN 325 MG TAB PO PRN ×2 (08:49→15:08)
[2018-11-20] MEDS: ATORVASTATIN CALCIUM 40 MG TAB PO SCH (08:50)
[2018-11-20] MEDS: PARoxetine HCL 20 MG TAB PO SCH (08:50)
[2018-11-20] MEDS: PANTOPRAZOLE SODIUM 40 MG TAB PO SCH (08:50)
[2018-11-20] MEDS: NS W/ 20 KCl/L 1,000 ML IV SCH (08:51)
[2018-11-20 11:53] VITALS: BP 148/74
--- NOTE | 2018-11-20 14:03 | PDIAF ---
- Diagnosis Code Status: Full Code - Medication Management Discharge Medications: electronically signed and located in the Home Medication List. - Orders Services needed: Home Care, Physical Therapy, Occupational Therapy Home Care Face to Face: I certify that this patient was under my care and that I had the required [id number] encounter meeting the encounter requirements on the discharge day. My findings support the fact that the patient is homebound as defined in Home Care Face to Face Continued: CMS Chapter 7 Medicare Benefits Manual 30.1.1 , The condition of the patient is such that there exists a normal inability to leave home and consequently, leaving home would require a considerable and taxing effort. Diet Recommendation: no restrictions on diet Diet Texture: Regular Texture Diet Additional Instructions: 1. Follow up with Dr. Maldonado in 2 weeks. [phone] 2. Ok to remove dressing on 11/18 and leave incision open to the air. 3. OK to shower and get incision wet starting 11/19. Be gentle. No scrubbing 4. Refrain from lifting more than 10 pounds and strenuous activity. 5. Call Dr. Maldonado's office with any questions/concerns. - Follow Up Care Current Providers and Referrals: EVARISTO MORRIS [Other] Kajal Maldonado DO [Doctor of Osteopathy] - follow up in 2 weeks
--- NOTE | 2018-11-20 14:42 | HOSPPROG ---
Hospitalist Progress Note Assessment/Plan: 68y female with brain stimulator placed. First encounter, chart reviewed. #Syncope -orthostatic positive, post-op day #4. -responded to fluids -CBC, BMP stable -still orthostatics -hold anti-hypertensive today -avoid opiates -likely response to opiates #Essential tremor - s/p deep brain stimulator POD #4 - post-op care per neurosurgery #Hypertension - hold triamterene/hctz for now #CAD s/p prior stent - CP free, ekg non-ischemic. - She was advised to stop her ASA and Plavix by her Supervisor Ovens. -cont statin #Hypothyroidism - cont synthroid Full code #Dispo -home when ok with NSG -doing better today Subjective: Sleeping, arousable. No complaints. Objective: Vital Signs Temp Pulse Resp BP Pulse Ox 36.6 C 82 16 128/64 H 95 11/20/18 07:25 11/20/18 11:48 11/20/18 11:48 11/20/18 11:48 11/20/18 11:48 Laboratory Results 11/19/18 08:20 11/19/18 08:20 11/19/18 11/20/18 11/21/18 05:59 05:59 05:59 Intake Total 2150 2938 Output Total 500 650 Balance 1650 2288 - Physical Exam Constitutional: no apparent distress, appears nourished, not in pain Eyes: PERRL, anicteric sclera, EOMI Ears, Nose, Mouth, Throat: moist mucous membranes, hearing normal, ears appear normal Cardiovascular: regular rate and rhythym, No JVD, No edema Respiratory: no respiratory distress, no rales or rhonchi, reduced air movement Gastrointestinal: normoactive bowel sounds, No tenderness, No ascites Skin: warm, normal color, No mottled Musculoskeletal: normal joint ROM, no joint effusions, generalized weakness Neurologic: AAOx3 Psychiatric: interacting appropriately, not anxious, not encephalopathic ICD10 Worksheet Patient Problems: Problems Problem Status Onset Essential tremor Acute
[2018-11-20] MEDS: IBUPROFEN 200 MG TAB PO PRN (15:09)
--- NOTE | 2018-11-20 15:36 | ASMTCMCOM ---
CM Note CM Note Notes: Pt medically stable for d/c with [facility] PT/OT. Suha at [facility] [phone] checks they service pt address and reports referral/orders are best faxed to [phone]. Pt address/phone verified and pt will return to [place] today. Date Signed: 11/20/2018 03:35 PM Electronically Signed By:GRISELDA Tinoco
--- NOTE | 2018-11-23 09:45 | GDS ---
[f rep st] DISCHARGE SUMMARY ADMITTING DIAGNOSIS: Essential tremor. DISCHARGE DIAGNOSES: Essential tremor with syncope. PROCEDURE: Placement of right VIM deep brain stimulator lead for essential tremor. CONSULTS: Physical and Occupational Therapy, Internal Medicine. HOSPITAL COURSE: The patient is a 68-year-old female who presented to the hospital to proceed with d eep brain stimulation surgery. She underwent surgery by Dr. Kajal Maldonado on November 16 with placemen t of right DBS lead to the VIM. Patient tolerated the surgery well without complication. Postop hea d CT revealed no acute intracranial hemorrhage. She was transferred to the floor for further neurolo gical checks and pain control. She worked with Physical and Occupational Therapy. On postop day 4, patient had a syncopal episode likely due to orthostatic hypotension. Medicine eval uated the patient and cleared her for home on November 20. Patient was discharged to home with home [facility] care on November 20. DISCHARGE INSTRUCTIONS: Patient will follow up with Dr. Kajal Maldonado in 2 weeks for suture removal a nd wound check. /[id number]/MODL
== END 2018-11-20 15:15 | disposition home health service (06) | DRG 27 ==
LOC: FSGY 05:42 → F3E 08:43 → F3N 13:39
PROVIDERS: ADMIT Neurological Surgery; ATTEND Neurological Surgery
DX: G25.0 Essential tremor (principal); I95.1 Orthostatic hypotension; I10 Essential (primary) hypertension; I25.10 Atherosclerotic heart disease of native coronary artery without angina pectoris; E87.5 Hyperkalemia; E03.9 Hypothyroidism, unspecified; Z98.1 Arthrodesis status
CPT/HCPCS: 97110-GP; 97116-GP; 97161-GP; 97166-GO; 97530-GO; 97530-GP; 97535-GO; C1713; C1778; J0171; J0360; J0697; J1580; J1953; J2270; J2405; J3010

== ENCOUNTER 2018-11-28 09:47 | Day surgery (SDC) | payer OTHER ==
--- NOTE | 2018-11-23 09:24 | GHP ---
[f rep st] PREOP HISTORY AND PHYSICAL DATE OF ADMISSION: 11/28/2018 DATE OF SURGERY: November 28. HPI: The patient is a 68-year-old female with essential tremor. She recently underwent bilateral deep brain stimulation lead placements to the VIM. She was diagnosed with tremors approximately 30 years ago. Her tremors are bilateral with the right hand worse than the left. She has recovered from the lead placements and presents today to proceed with placement of the generators bilaterally. 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 She is currently on Keppra. PAST MEDICAL HISTORY: Essential tremor, depression, dyslipidemia, seizure, thyroid disorder, cancer. PAST SURGICAL HISTORY: Cervical and lumbar spinal fusions, bilateral VIM DBS lead placements. ALLERGIES: No known drug allergies. CURRENT HOME MEDICATIONS: Keppra, baby aspirin, Zoloft, amitriptyline, atorvastatin, Synthroid. SOCIAL HISTORY: Denies alcohol and tobacco use. She has 2 children. REVIEW OF SYSTEMS: Negative except for what is mentioned in the HPI. FAMILY HISTORY: No pertinent neurosurgical family history. PHYSICAL EXAM: The patient was seen and examined. Appears in no apparent distress. Mood and affect are appropriate. Alert and oriented. Extraocular movements are intact. Pupils are equal and reactive to light. Facial expression is symmetrical. Tongue is midline with protrusion. Hearing is grossly intact. Speech is fluent without any dysarthria. Muscle strength is well preserved in the upper and lower extremities. ASSESSMENT AND PLAN: In summary, the patient is a 68-year-old female with essential tremor. She has undergone bilateral deep brain stimulation lead placements to the VIM. She now presents today to proceed with placement of the generators bilaterally. The risks, benefits, and procedure were discussed in detail with the patient. Patient has consented. All her questions and concerns were addressed and answered. /[id number]/MODL MTDD
[~2018-11-28 09:47] MED LIST changes: -BUPIVACAINE 0.25% 30 ML SDV ONE; -CEFUROXIME 1,500 MG in NS 50 ML IV ONE; -CHLORHEXIDINE GLUC HIBICLENS 118 ML BTL TP ONE; -EPINEPHrine 1 MG/ML INJ ONE; -GENTAMICIN SULFATE 80 MG/2 ML VIAL ONE; +LABETALOL HCL 5 MG/ML 20 ML MDV IVP SCH; -LR 1,000 ML IV ONE; -POVIDONE-IODINE 30 GM OINTTUBE TP ONE; -THROMBIN (BOVINE) 20,000 UNIT VIAL TP ONE; +fentaNYL 100 MCG/2 ML INJ IVP PRN
[2018-11-28] MEDS ORDERED: LR 1,000 ML IV ONE (10:14)
[2018-11-28] MEDS ORDERED: CHLORHEXIDINE GLUC HIBICLENS 118 ML BTL TP ONE ×2 (10:34→13:29)
[2018-11-28] MEDS ORDERED: LIDOCAINE 1% 300 MG/30 ML SDV ONE (10:34)
[2018-11-28] MEDS ORDERED: GENTAMICIN SULFATE 80 MG/2 ML VIAL ONE ×2 (10:35→13:13)
[2018-11-28] MEDS ORDERED: BUPIVACAINE/EPI 0.25% 30 ML SDV ONE (10:35)
--- NOTE | 2018-11-28 12:09 | PDANEPAE ---
ANE History of Present Illness Seizure and movement disorder and here for DBS generator placement ANE Past Medical History - Cardiovascular History Hx Hypertension: No Hx Arrhythmias: No Hx Chest Pain: No Hx Coronary Artery / Peripheral Vascular Disease: Yes Hx CHF / Valvular Disease: No Hx Palpitations: No Cardiovascular History Comment: htn. hyperlipidemia. pvd. 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 "Hand tremors" x 30 years. Recent seizures - last one about 6 wks ago - Endocrine History Hx Diabetes: No Endocrine History Comment: hypothyroidism - Renal History Hx Renal Disorders: No - Liver History Hx Hepatic Disorders: No - Neurological & Psychiatric Hx Hx Neurological and Psychiatric Disorders: No Neurological / Psychiatric History Comment: depression - Cancer History Hx Cancer: Yes Cancer History Comment: Melanoma to L arm that was removed. - Congenital Disorder History Hx Congenital Disorders: No - GI History Hx Gastrointestinal Disorders: Yes Gastrointestinal History Comment: Reflux. Ulcers - Other Health History Other Health History: Missing teeth to bottom jaw; no loose teeth. wears glasses. bilateral hearing aides - Chronic Pain History Chronic Pain: No - Surgical History Prior Surgeries: 11/16/18 DBS lead placement- right with Maldonado. 10/06/18 DBS lead placement- left hemisphere with Maldonado. L2-S1 fusion 2010. C4-C-7 fusion 2011. Anterior/Posterior fusion L3-L4 2012. L Shoulder "cleaning up" 2012. Stent to heart 2016. Stent to R cartotid 2016. L wrist fracture w/ surgical 2005. L wrist hardware removal 2009 ANE Review of Systems Review of Systems: - Exercise capacity METS (RN): 4 METS ANE Patient History - Allergies Allergies/Adverse Reactions: No Known Drug Allergies Allergy (Verified 11/23/18 10:15) - Home Medications Home Medications: Amitriptyline HCl [Elavil 100 MG (*)] 200 mg PO HS 08/31/18 [Last Taken 11/15/18 ] Atorvastatin Calcium [Lipitor 40 mg (*)] 40 mg PO DAILY 08/31/18 [Last Taken 04/09] Levothyroxine [Synthroid 50 mcg (*)] 50 mcg PO DAILY06 08/31/18 [Last Taken 04/09] Multivitamins [Multivitamin (*)] 1 each PO DAILY 08/31/18 [Last Taken 11/23/18] Pantoprazole Sodium [Protonix 40mg (*)] 40 mg PO DAILY 08/31/18 [Last Taken 04/09] levETIRAcetam [Keppra 500 mg (*)] 1,000 mg PO BID 08/31/18 [Last Taken 11/27/18] Triamterene/Hctz 37.5/25 [Maxzide-25 (*)] 37.5 mg PO DAILY 10/06/18 [Last Taken 11/27/18] Acetaminophen [Tylenol 325mg (*)] 325 mg PO Q4HRS PRN 11/06/18 [Last Taken 11/24] PARoxetine HCL [Paxil 20mg (*)] 20 mg PO DAILY 11/16/18 [Last Taken 11/27/18] Tears/Dextran 70/Hypromellose [Natural Balance Tears (*)] 1 drop EACHEYE Q2 PRN 11/16/18 [Last Taken 11/27/18] - NPO status NPO Since - Liquids (Date): 11/28/18 NPO Since - Liquids (Time): 03:00 NPO Since - Solids (Date): 11/27/18 - Smoking Hx Smoking Status: Never smoked - Family Anes Hx Family Hx Anesthesia Complications: none ANE Labs/Vital Signs - Vital Signs Blood Pressure: 145/76 Heart Rate: 82 Respiratory Rate: 15 O2 Sat (%): 94 Height: 170.18 cm Weight: 52.163 kg ANE Physical Exam - Airway Neck exam: FROM Mallampati Score: Class 2 Mouth exam: normal dental/mouth exam - Pulmonary Pulmonary: no respiratory distress, no rales or rhonchi - Cardiovascular Cardiovascular: regular rate and rhythym, no murmur, rub, or gallop - ASA Status ASA Status: II ANE Anesthesia Plan Anesthesia Plan: GA w LMA Total IV Anesthesia: No
[2018-11-28] MEDS ORDERED: levETIRAcetam 1000MG/NACL 100 ML IV ONE (12:26)
[2018-11-28] MEDS ORDERED: DEXAMETHASONE 4 MG/ML VIAL ONE (12:27)
[2018-11-28] MEDS ORDERED: PROPOFOL 200 MG/20 ML VIAL ONE (12:27)
[2018-11-28] MEDS ORDERED: ONDANSETRON 4 MG/2 ML VIAL ONE (12:27)
[2018-11-28] MEDS ORDERED: fentaNYL 100 MCG/2 ML INJ ONE ×3 (12:27→15:18)
[2018-11-28] MEDS ORDERED: LIDOCAINE 2% 100 MG/5 ML SYR ONE (12:27)
[2018-11-28] MEDS ORDERED: niCARdipine/NACL 200 ML IV SCH (12:30)
[2018-11-28] MEDS ORDERED: DEXMEDETOMIDINE HCL 400 MCG in NS 100 ML IV SCH (12:30)
[2018-11-28] MEDS ORDERED: LR 500 ML IV PRN (13:54)
[2018-11-28] MEDS ORDERED: ONDANSETRON 4 MG/2 ML VIAL IVP PRN (13:54)
[2018-11-28] MEDS ORDERED: MEPERIDINE 25 MG/0.5 ML AMP IVP PRN (13:54)
[2018-11-28] MEDS ORDERED: NALOXONE HCL 0.4 MG/ML INJ IVP PRN (13:54)
[2018-11-28] MEDS ORDERED: HYDROmorphONE/DILAUDID 1 MG/ML INJ IVP PRN (13:54)
[2018-11-28] MEDS ORDERED: DIAZEPAM 5 MG/ML 1 ML SYR IVP PRN (13:54)
--- NOTE | 2018-11-28 14:17 | GOP ---
[f rep st] OPERATIVE REPORT DATE OF OPERATION: 11/28/2018 SURGEON: Kajal Maldonado DO NEUROSURGEON: Kajal Maldonado DO. BELT DRESSER: NAT oKo. PREOPERATIVE DIAGNOSIS: Essential tremor. POSTOPERATIVE DIAGNOSIS: Essential tremor. PROCEDURE PERFORMED: Bilateral deep brain stimulator generator placement with an Ramírez generator. FINDINGS: SPECIMENS: None. ESTIMATED BLOOD LOSS: 15 mL. INDICATIONS: This is a 68-year-old female with bilateral deep brain stimulator leads indwelling, ret urns today for a generator placement bilaterally. DESCRIPTION OF PROCEDURE: She was identified, consented. Sites were marked. Brought to the operati ng room. Anesthetized under general endotracheal tube anesthesia. Hair was clipped with the OR clip pers. Sutures were removed on the right side. Incision sites were marked. She was prepped and drap ed in the usual sterile fashion. Incision on the right side of the chest wall was anesthetized with 0.25% Marcaine with epinephrine. Incision was made just lateral to lead extension complex with a 10 blade and dissected this out with Metzenbaum scissors. We then made an incision at the chest wall wi th a 10 blade and dissected through the muscle to place a subpectoral generator as the patient's body habitus is exceedingly small and she consented to this prior to surgery. We then tunneled from the head down to the chest in a single pass over the clavicle, bringing the lead extension up and out, di scarding the straw. Using the torque wrench, removed the lead extension cap and gently dried the gio d, placed into the extension, locked in place with a torque wrench, placed the lead into the generato r, locked it in place with a torque wrench. Brought the lead flat against the skull, coiled the lead posterior around the generator, checked impedances. All impedances were good. Sutured the generato r to the chest fascia with 2-0 silk stitch at 2 positions. Copiously irrigated with each incision wi th over a liter of gentamicin-infused saline. Closed the subcutaneous layer with 2-0 Vicryl pop-offs at the chest wall with 3-0 Vicryl pop-offs, cutaneous layer, then a 4-0 running Monocryl and Steri-S trips. The wound was closed with 2-0 Vicryl pop-offs at the galea, 3-0 running nylon. Head wound wa s dressed with Xeroform gauze and a Medipore. The patient was undraped. Her head was turned and the same procedure was performed on the left side, making an incision after prepping and draping in the usual sterile fashion and anesthetizing the chest wall with 0.25% Marcaine with epinephrine. Made an incision just lateral to lead extension complex with a 10 blade and dissected this lead extension co mplex out. We then made an incision in the chest wall with a 10 blade and dissected through the pect oralis muscle with Metzenbaum scissors. Meticulous hemostasis was obtained. Created a subcutaneous pocket, tunneled from the head down to the chest with a tunneler and a single pass over the clavicle, bringing the lead extension down and out, discarding the straw, using the torque wrench to remove le ad extension cap, discarded this. Gently dried the lead, placed it into the extension, locked in ratna ce with a torque wrench. Placed the lead into the generator, locked into place with a torque wrench. Brought the lead flat against the skull, coiled the lead posterior to the generator into the pocket . Checked impedances. All impedances were good. Meticulous hemostasis was obtained with bipolar ca utery. Copiously irrigated each incision with over a liter of gentamicin-infused saline. Closed the galea with 2-0 Vicryl pop-offs, the skin with 3-0 running nylon. The chest wall fascia was closed w ith 2-0 Vicryl pop-offs, subcutaneous layer with 3-0 Vicryl pop-offs. The skin was closed with 4-0 r unning Monocryl and Steri-Strips. The wounds were dressed with Xeroform gauze and Tegaderm at the [facility]. The patient tolerated procedure well. No complications and all impedances were good. FLUIDS: 300 mL crystalloid. URINE OUTPUT: None. DRAINS: None. COMPLICATIONS: None. /[id number]/MODL
--- NOTE | 2018-11-28 14:20 | POSTOPPROG ---
Post Op Note Date of Operation: 11/28/18 Surgeon: Kajal Maldonado Special Equipment Technician: Loraine Toure PA-C Anesthesia: GET(General Endotracheal), Local (Specify) Pre-op Diagnosis: Essential tremor Post-op Diagnosis: Essential tremor Procedure: Implant of bilateral DBS generator Inf/Abcess present in the surg proc area at time of surgery?: No Depth: Deep Incisional (Fascial) EBL: Minimal Plan Plan: 68 yo female s/p bilateral DBS generator implant - pain control - advance diet as tolerated - dc home today
--- NOTE | 2018-11-28 14:23 | POSTANESTH ---
Post Anesthetic Evaluation Cardiovascular Status: Normal, Stable Respiratory Status: Normal, Stable Level of Consciousness/Mental Status: Can Participate in Eval, Mildly Sleepy, Arousable Pain Control: Adequate, Prn Tx Ordered Nausea/Vomiting Control: Adequate, Prn Tx Ordered Complications Possibly Related to Anesthesia: None Noted
[2018-11-28] MEDS: fentaNYL 100 MCG/2 ML INJ IVP PRN ×3 (15:20→15:47)
[2018-11-28] MEDS ORDERED: HYDROCODONE/APAP 5/325 TAB ONE ×2 (15:37→16:57)
[2018-11-28] MEDS: HYDROCODONE/APAP 5/325 TAB PO PRN ×2 (15:39→17:00)
[2018-11-28 17:01] VITALS: BP 153/64
== END 2018-11-28 16:50 | disposition home or self-care (01) ==
LOC: UNDOADMIN 09:47 → FSGY 09:47 → F3N 09:47 → EDSTATUS 12:15 → FSGY 14:15
PROVIDERS: ATTEND Neurological Surgery
PROC: 0JH60DZ Insertion of Multiple Array Stimulator Generator into Chest Subcutaneous Tissue and Fascia, Open Approach (ICD-10-PCS; principal; 2018-11-28 12:15)
DX: G25.0 Essential tremor (principal); G40.909 Epilepsy, unspecified, not intractable, without status epilepticus; I95.1 Orthostatic hypotension; I10 Essential (primary) hypertension; I25.10 Atherosclerotic heart disease of native coronary artery without angina pectoris; E87.5 Hyperkalemia; E03.9 Hypothyroidism, unspecified; Z98.1 Arthrodesis status
CPT/HCPCS: C1767; C1883; J0690; J1100; J1580; J1953; J2001; J2405; J2704; J3010